=== PATIENT | female | born 1950 | race Two or more races ===

== ENCOUNTER 2024-03-17 22:36 | Inpatient (IN) | payer MEDICAID ==
[~2024-03-17] VITALS: Ht 160 cm; Wt 79.3 kg
[~2024-03-17 22:36] MED LIST: ASPI81CH43 GT; HYDR12.59 PO
[2024-03-17 23:31] LABS: Basophils # (auto) 0 10 ^3/uL (0-0.2); Basophils % (auto) 0.3 % (0.0-2.0); Eosinophils # (auto) 0.1 10 ^3/uL (0-0.8); Eosinophils % (auto) 0.8 % (0.0-7.0); Hematocrit 39.3 % (36.0-46.0); Hemoglobin 12.9 g/dL (12.2-16.2); Lymphocytes # (auto) 2.2 10 ^3/uL (0.4-5.4); Lymphocytes % (auto) 18.5 % (10.0-50.0); Mean Corpuscular Hemoglobin 31.3 pg (28.0-32.0); Mean Corpuscular Hgb Conc. 32.9 g/dL (32.0-36.0); Mean Corpuscular Volume 95.1 fL (80.0-100.0); Monocytes # (auto) 0.7 10 ^3/uL (0-1.3); Monocytes % (auto) 5.7 % (0.0-12.0); Neutrophils # (auto) 8.8 10 ^3/uL (1.6-8.6); Neutrophils % (auto) 74.7 % (37.0-80.0); Nucleated Red Blood Cells % 0.1 %; Platelet Count (auto) 192 10^3/uL (140-450); Red Blood Cells 4.13 10^6/uL (4.0-5.20); Red Cell Distribution Width 14.3 % (11.8-14.3); White Blood Cell 11.8 10^3/uL (4.4-10.8)
[2024-03-17 23:50] LABS: Alanine Aminotransferase 18 U/L (7-40); Albumin 4.2 g/dL (3.2-4.8); Alkaline Phosphatase 79 U/L (46-116); Anion Gap 5 (5-15); Aspartate Aminotransferase 18 U/L (13-40); BUN/Creatinine Ratio 14.7 (10.0-20.0); Blood Urea Nitrogen 11 mg/dL (9-23); Calcium 9.5 mg/dL (8.7-10.4); Carbon Dioxide 26 mmol/L (20-30); Chloride 104 mmol/L (98-107); Glucose 116 mg/dL (74-106); Lipase 47 U/L (12-53); Potassium 3.9 mmol/L (3.5-5.1); Sodium 135 mmol/L (136-145)
[2024-03-17 23:51] LABS: Total Protein 6.9 g/dL (5.7-8.2)
[2024-03-18 00:09] LABS: Bilirubin, Total 0.6 mg/dL (0.2-1.0)
[2024-03-18 00:23] LABS: COVID19 ANTIGEN SOFIA FIA NEGATIVE (NEGATIVE)
[2024-03-18] MEDS: ONDANSETRON HCL 4 MG/2 ML VIAL IV ONE (03:37)
[2024-03-18] MEDS: metroNIDAZOLE 500MG/100ML 100 ML IV ONE (03:38)
[2024-03-18] MEDS: SODIUM CHLORIDE 0.9% 500 ML IVB ONE (03:39)
[2024-03-18 08:17] VITALS: PULSE 62; RESP 19; O2SAT 98
[2024-03-18 09:05] LABS: Urine Bacteria FEW /hpf (None Seen); Urine Blood TRACE /uL (Negative); Urine Clarity Clear (Clear); Urine Color Light-Yellow (Yellow); Urine Protein, UAD Negative (Negative); Urine Specific Gravity 1.006 (1.001-1.035); Urine Urobilinogen Normal (Negative); Urine WBC 1 /hpf (0 - 5)
[2024-03-18] MEDS: PANTOPRAZOLE 40mg/50ML NS AE 50 ML IV SCH (09:38)
[2024-03-18] MEDS: ONDANSETRON HCL 4 MG/2 ML VIAL IV PRN (10:15)
[2024-03-18] MEDS: MORPHINE SULFATE INJ 2 MG/ml SYRG IV PRN (10:16)
[2024-03-18] MEDS: SODIUM CHLORIDE 0.9% 1,000 ML IV SCH (10:17)
[2024-03-18] MEDS ORDERED: DOCUSATE SOD 100 MG CAP PO PRN (11:30)
[2024-03-18] MEDS ORDERED: ONDANSETRON HCL 4 MG/2 ML VIAL IV PRN (11:30)
[2024-03-18] MEDS ORDERED: HYDROcodone-ACET 5/325MG TAB PO PRN (11:30)
[2024-03-18] MEDS ORDERED: ACETAMINOPHEN 325 MG TAB PO PRN (11:30)
[2024-03-18] MEDS: metroNIDAZOLE 500MG/100ML 100 ML IV SCH (12:08)
[2024-03-18] MEDS: cefTRIAXone 1GM/50ML D5W 50 ML IV SCH (12:09)
[2024-03-18] MEDS: LACTATED RINGER'S 1,000 ML IV ONE (12:10)
[2024-03-18] MEDS: SODIUM CHLOR 0.9% PF (SALINE LOCK) 10ML VIAL/SYR IV SCH (13:31)
[2024-03-18 13:48] LABS: Basophils # (auto) 0 10 ^3/uL (0-0.2); Basophils % (auto) 0.3 % (0.0-2.0); Eosinophils # (auto) 0.1 10 ^3/uL (0-0.8); Eosinophils % (auto) 0.7 % (0.0-7.0); Hemoglobin 12.1 g/dL (12.2-16.2); Lymphocytes # (auto) 2.1 10 ^3/uL (0.4-5.4); Lymphocytes % (auto) 21.5 % (10.0-50.0); Mean Corpuscular Hemoglobin 31.9 pg (28.0-32.0); Mean Corpuscular Hgb Conc. 33.6 g/dL (32.0-36.0); Mean Corpuscular Volume 94.9 fL (80.0-100.0); Monocytes # (auto) 0.7 10 ^3/uL (0-1.3); Monocytes % (auto) 7.2 % (0.0-12.0); Neutrophils # (auto) 6.9 10 ^3/uL (1.6-8.6); Neutrophils % (auto) 70.3 % (37.0-80.0); Platelet Count (auto) 170 10^3/uL (140-450); Red Blood Cells 3.79 10^6/uL (4.0-5.20); Red Cell Distribution Width 14.4 % (11.8-14.3); White Blood Cell 9.8 10^3/uL (4.4-10.8)
[2024-03-18 14:02] LABS: Alanine Aminotransferase 14 U/L (7-40); Albumin 3.6 g/dL (3.2-4.8); Alkaline Phosphatase 76 U/L (46-116); Anion Gap 3 (5-15); Aspartate Aminotransferase 15 U/L (13-40); BUN/Creatinine Ratio 14.5 (10.0-20.0); Blood Urea Nitrogen 10 mg/dL (9-23); Calcium 8.8 mg/dL (8.7-10.4); Carbon Dioxide 28 mmol/L (20-30); Chloride 106 mmol/L (98-107); Glucose 103 mg/dL (74-106); Potassium 4.1 mmol/L (3.5-5.1); Sodium 137 mmol/L (136-145)
[2024-03-18 14:03] LABS: Bilirubin, Total 0.6 mg/dL (0.2-1.0); Total Protein 5.5 g/dL (5.7-8.2)
[2024-03-18 14:43] VITALS: BP 180/55; PULSE 75; RESP 18; TEMP 98.3; O2SAT 96
[2024-03-18 16:16] VITALS: BP 150/70; PULSE 68; RESP 16; TEMP 98.3; O2SAT 96
[2024-03-18 17:00] VITALS: BP 150/70; PULSE 68; RESP 16; TEMP 98.3; O2SAT 96
[2024-03-18] MEDS ORDERED: ENAL1TAB42 PO (19:16)
[2024-03-18 20:00] VITALS: PULSE 68; RESP 18
[2024-03-18 21:00] VITALS: BP 137/52; PULSE 68; RESP 20; TEMP 99.3; O2SAT 95
[2024-03-18 22:37] LABS: Hematocrit 34.3 % (36.0-46.0); Hemoglobin 11.6 g/dL (12.2-16.2)
[2024-03-18 22:56] LABS: INR 1.05 (0.9-1.15); Prothrombin Time 11.1 sec (9.3-11.8)
[2024-03-19] VITALS (8 sets, daily range): BP systolic 112–150; BP diastolic 36–51; PULSE 55–68; RESP 14–21; TEMP 97.6–98.8; O2SAT 93–100
[2024-03-19 06:11] LABS: Basophils # (auto) 0 10 ^3/uL (0-0.2); Basophils % (auto) 0.4 % (0.0-2.0); Eosinophils # (auto) 0.2 10 ^3/uL (0-0.8); Eosinophils % (auto) 2.2 % (0.0-7.0); Hematocrit 36.6 % (36.0-46.0); Hemoglobin 12.5 g/dL (12.2-16.2); Lymphocytes # (auto) 2.5 10 ^3/uL (0.4-5.4); Mean Corpuscular Hemoglobin 32.6 pg (28.0-32.0); Mean Corpuscular Hgb Conc. 34.3 g/dL (32.0-36.0); Mean Corpuscular Volume 95.2 fL (80.0-100.0); Monocytes # (auto) 0.7 10 ^3/uL (0-1.3); Monocytes % (auto) 6.6 % (0.0-12.0); Neutrophils # (auto) 6.5 10 ^3/uL (1.6-8.6); Neutrophils % (auto) 65.8 % (37.0-80.0); Nucleated Red Blood Cells % 0.2 %; Platelet Count (auto) 178 10^3/uL (140-450); Red Blood Cells 3.84 10^6/uL (4.0-5.20); Red Cell Distribution Width 14.3 % (11.8-14.3); White Blood Cell 9.9 10^3/uL (4.4-10.8)
[2024-03-19 06:29] LABS: Alanine Aminotransferase 14 U/L (7-40); Alkaline Phosphatase 74 U/L (46-116); Anion Gap 3 (5-15); BUN/Creatinine Ratio 8.6 (10.0-20.0); Blood Urea Nitrogen 7 mg/dL (9-23); Carbon Dioxide 30 mmol/L (20-30); Chloride 105 mmol/L (98-107); Glucose 99 mg/dL (74-106); Potassium 4.2 mmol/L (3.5-5.1); Sodium 138 mmol/L (136-145)
[2024-03-19 06:30] LABS: Albumin 3.8 g/dL (3.2-4.8); Aspartate Aminotransferase 15 U/L (13-40); Total Protein 6.3 g/dL (5.7-8.2)
[2024-03-19 11:07] LABS: Hematocrit 33.7 % (36.0-46.0); Hemoglobin 11.5 g/dL (12.2-16.2)
[2024-03-19] MEDS ORDERED: diphenhdrAMINE HCL 50 MG/1 ML VL ONE (15:25)
[2024-03-19] MEDS ORDERED: LIDOCAINE VISCOUS 2% 15ML UD ONE (15:25)
[2024-03-19] MEDS: fentaNYL CITRATE 100 MCG/2 ML VL ONE (17:46)
[2024-03-19] MEDS: MIDAZOLAM HCL 5 MG/ML-1ML VIAL ONE (17:46)
[2024-03-19 22:21] LABS: Hematocrit 32.8 % (36.0-46.0); Hemoglobin 10.8 g/dL (12.2-16.2)
[2024-03-20 01:00] VITALS: BP 138/51; PULSE 68; RESP 20; TEMP 98.3; O2SAT 95
[2024-03-20 05:00] VITALS: BP 146/54; PULSE 54; RESP 18; TEMP 97.9; O2SAT 18
[2024-03-20 06:30] LABS: Basophils # (auto) 0 10 ^3/uL (0-0.2); Basophils % (auto) 0.4 % (0.0-2.0); Eosinophils # (auto) 0.2 10 ^3/uL (0-0.8); Eosinophils % (auto) 2.7 % (0.0-7.0); Hemoglobin 11.3 g/dL (12.2-16.2); Lymphocytes # (auto) 1.9 10 ^3/uL (0.4-5.4); Lymphocytes % (auto) 29.2 % (10.0-50.0); Mean Corpuscular Hemoglobin 32.8 pg (28.0-32.0); Mean Corpuscular Hgb Conc. 34.2 g/dL (32.0-36.0); Mean Corpuscular Volume 95.9 fL (80.0-100.0); Monocytes # (auto) 0.5 10 ^3/uL (0-1.3); Monocytes % (auto) 7.1 % (0.0-12.0); Neutrophils % (auto) 60.6 % (37.0-80.0); Platelet Count (auto) 157 10^3/uL (140-450); Red Blood Cells 3.44 10^6/uL (4.0-5.20); Red Cell Distribution Width 14.5 % (11.8-14.3); White Blood Cell 6.6 10^3/uL (4.4-10.8)
[2024-03-20 06:48] LABS: Alanine Aminotransferase 13 U/L (7-40); Albumin 3.5 g/dL (3.2-4.8); Alkaline Phosphatase 70 U/L (46-116); Anion Gap 4 (5-15); Aspartate Aminotransferase 13 U/L (13-40); BUN/Creatinine Ratio 9.3 (10.0-20.0); Blood Urea Nitrogen 7 mg/dL (9-23); Calcium 8.7 mg/dL (8.7-10.4); Carbon Dioxide 28 mmol/L (20-30); Chloride 106 mmol/L (98-107); Glucose 78 mg/dL (74-106); Potassium 3.6 mmol/L (3.5-5.1); Sodium 138 mmol/L (136-145)
[2024-03-20 06:49] LABS: Bilirubin, Total 0.6 mg/dL (0.2-1.0); Total Protein 5.7 g/dL (5.7-8.2)
[2024-03-20 08:00] VITALS: PULSE 60; RESP 16; O2SAT 97
[2024-03-20 08:58] VITALS: BP 129/57; PULSE 60; RESP 16; TEMP 98.2; O2SAT 97
[2024-03-20] MEDS: PANTOPRAZOLE 40 MG/10 ML VIAL INJ IV SCH (10:29)
[2024-03-20 10:32] LABS: Hematocrit 33.8 % (36.0-46.0); Hemoglobin 11.3 g/dL (12.2-16.2)
[2024-03-20] MEDS ORDERED: SUCR1TAB PO (12:16)
[2024-03-20] MEDS ORDERED: PANT40T PO (12:16)
[2024-03-20 12:28] VITALS: BP 146/58; PULSE 65; RESP 16; TEMP 98.5; O2SAT 95
[2024-03-20 13:30] VITALS: BP 146/58; PULSE 65; RESP 16; TEMP 98.5; O2SAT 95
== END 2024-03-20 14:30 | disposition home or self-care (01) | DRG 241 ==
LOC: ER 22:36 → OVERFLOW 03-18 11:32 → CENTRAL 03-18 14:58
PROVIDERS: ATTEND Internal Medicine
PROC: 0DB78ZX Excision of Stomach, Pylorus, Via Natural or Artificial Opening Endoscopic, Diagnostic (ICD-10-PCS; principal; 2024-03-19 17:37)
DX: K25.4 Chronic or unspecified gastric ulcer with hemorrhage (principal); R71.0 Precipitous drop in hematocrit; K57.30 Diverticulosis of large intestine without perforation or abscess without bleeding; A09 Infectious gastroenteritis and colitis, unspecified; K26.4 Chronic or unspecified duodenal ulcer with hemorrhage; I10 Essential (primary) hypertension; R91.1 Solitary pulmonary nodule; K57.32 Diverticulitis of large intestine without perforation or abscess without bleeding; Z20.822 Contact with and (suspected) exposure to COVID-19; I25.10 Atherosclerotic heart disease of native coronary artery without angina pectoris; Z79.82 Long term (current) use of aspirin; Z79.899 Other long term (current) drug therapy; Z90.49 Acquired absence of other specified parts of digestive tract
CPT/HCPCS: 20610; 36415; 43239; 71045; 80053; 81001; 83605; 83690; 85014; 85018; 85025; 85610; 85730; 86850; 86900; 86901; 87426; 93005; G0378; J2250; J2405; J2470; J3490

== ENCOUNTER 2024-06-13 18:17 | Emergency (ER) | payer MEDICAID ==
[~2024-06-13] VITALS: Ht 157.5 cm; Wt 76.3 kg
[~2024-06-13 18:17] MED LIST changes: +ENAL1TAB42 PO; +PANT40T PO; +SUCR1TAB PO
--- NOTE | 2024-06-13 19:08 | ED.PDOC ---
HPI (NEURO) HPI Comments HPI: Poor Historian. 74-year-old female complains of one-week history of nonspecific dizziness. No alleviating or precipitating factors. Patient also mentioned that she has some associated nausea. Denies any pain. Patient states having some diarrhea yesterday six episodes and today twice yellow in color. Past Medcial History: Hypertension on enalapril Past Surgical History: Cholecystectomy REVIEW OF SYSTEMS: CONSTITUTIONAL: Denies acute: fever, diaphoresis, chills, generalized weakness. HEAD: Denies acute: headache, photophobia Eyes: Denies acute: Double vision, vision loss, eye pain, eye discharge. EARS: Denies acute: tinnitus, hearing loss, ear discharge, ear pain, THROAT: Denies acute: sore throat, swelling, difficulty swallowing , pain with swallowing, change in voice. NECK: Denies acute: neck pain, neck swelling, stiff neck. HEART: Denies acute : chest pain, palpitations, LUNGS: Denies acute: SOB, wheezing, cough, hemoptysis ABDOMEN: Denies acute: abdominal pain, Vomiting, melena , hematemesis, hematochezia SKIN: Denies acute: rash, redness, lesions, itchiness. EXTREMITIES: Denies acute: calf pain, numbness, tingling, weakness, denies pain in extremity. Denies acute: Low back pain. Neuro: Denies acute: focal neurological deficit, motor or sensory focal neurological deficit, tremors, seizure like activity, confusion, change in mental status, loss of bowel or bladder function, cauda equina like symptoms. : Denies acute: dysuria, hematuria, flank pain, increase in urinary frequency. PSYCH: Denies acute: hallucination, suicidal ideation, homicidal ideation. FEMALE: Denies acute: abnormal vaginal bleeding, foul odor, unusual discharge. PHYSICAL EXAM: General: no acute distress, awake and alert. Head: normocephalic, atraumatic. Neck: supple, trachea is midline, no swelling. Throat: Normal phonation. Eyes:, no erythema, no purulent discharge, no proptosis, no icterus. Heart: regular rate, regular rhythm, no significant murmur appreciated. Lungs: no apparent respiratory distress, Able to speak in full sentences. No wheezing, no rhonchi, no crackles. No stridors Clear to auscultation bilaterally. Abdomen: non tender to palpation, non distended, soft, no guarding, no rebound, + bowel sounds. Neuro: Awake, Alert, oriented to name, self, situation, follows commands GCS=15. Speech is normal. Skin: no petechia, no purpura, no cyanosis, non-pale, not jaundice. Lower extremities: --no - Pitting edema no deformity, no focal swelling, no calf TTP. Makes eye contact. moves all four extremities. Face: no apparent facial droop. Ambulating in the ED independently. PERRLA, EOM-I CN 2-12 are grossly intact, No nystagmus. No nuchal rigidity, Kernig's sign, Brudzinski's sign, no meningeal signs. 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 Was a procedure done?: No Differential Diagnosis (SZ) Seizure: N/A General Weakness: Anemia, CVA, Dehydration, Dysrhythmia, Electrolyte imbalance, Encephalopathy, Guillain-[place], Hypoglycemia, Hypotension, Hypovolemia, Labyrinthitis, Meniere's disease, Myasthenia gravis, Myocardial infarction, P ulmonary embolus, Renal failure, Repiratory failure, TIA, VBI, Vertigo: central, Vertigo: peripheral, Vestibular neuronitis X-Ray, Labs, Meds, VS Vital Signs Date Time Temp Pulse Resp B/P (MAP) Pulse Ox O2 Delivery O2 Flow Rate FiO2 06/13/24 22:21 76 18 153/65 (94) 98 06/13/24 22:20 67 18 152/55 (87) 98 06/13/24 19:48 89 18 92 Room Air* 0 21 06/13/24 19:48 98.7 89 18 116/55 (75) 92 98.7 06/13/24 18:52 98.3 89 18 162/63 (96) 95 06/13/24 18:51 78 Lab Test 06/13/24 21:12 11/18/24 19:53 06/13/24 19:16 06/13/24 18:49 Range/Units Troponin I High Sensitivity 4 4 </=34 ng/L White Blood Count 9.3 4.4-10.8 10^3/uL Red Blood Count 4.30 4.0-5.20 10^6/uL Hemoglobin 13.7 12.2-16.2 g/dL Hematocrit 39.7 36.0-46.0 % Mean Corpuscular Volume 92.5 80.0-100.0 fL Mean Corpuscular Hemoglobin 31.8 28.0-32.0 pg Mean Corpuscular Hemoglobin Concent 34.4 32.0-36.0 g/dL Red Cell Distribution Width 14.0 11.8-14.3 % Platelet Count 226 140-450 10^3/uL Mean Platelet Volume 8.4 6.9-10.8 fL Neutrophils (%) (Auto) 61.5 37.0-80.0 % Lymphocytes (%) (Auto) 28.4 10.0-50.0 % Monocytes (%) (Auto) 7.8 0.0-12.0 % Eosinophils (%) (Auto) 1.6 0.0-7.0 % Basophils (%) (Auto) 0.7 0.0-2.0 % Neutrophils # (Auto) 5.7 1.6-8.6 10 ^3/uL Lymphocytes # (Auto) 2.7 0.4-5.4 10 ^3/uL Monocytes # (Auto) 0.7 0-1.3 10 ^3/uL Eosinophils # (Auto) 0.2 0-0.8 10 ^3/uL Basophils # (Auto) 0.1 0-0.2 10 ^3/uL Nucleated Red Blood Cells 0.1 % Sodium Level 137 136-145 mmol/L Potassium Level 4.3 3.5-5.1 mmol/L Chloride Level 102 98-107 mmol/L Carbon Dioxide Level 28 20-31 mmol/L Anion Gap 7 5-15 Blood Urea Nitrogen 18 9-23 mg/dL Creatinine 0.84 0.550-1.02 mg/dL Glomerular Filtration Rate Calc 72 >90 mL/min BUN/Creatinine Ratio 21.4 H 10.0-20.0 Serum Glucose 117 H 74-106 mg/dL Lactic Acid Level 1.1 0.4-2.0 mmol/L Calcium Level 10.0 8.7-10.4 mg/dL Magnesium Level 2.0 1.6-2.6 mg/dL Total Bilirubin 0.3 0.2-1.0 mg/dL Aspartate Amino Transferase (AST) 20 13-40 U/L Alanine Aminotransferase (ALT) 18 7-40 U/L Alkaline Phosphatase 89 46-116 U/L Total Protein 7.4 5.7-8.2 g/dL Albumin 4.8 3.2-4.8 g/dL Urine Color Light-yellow Yellow Urine Clarity Clear Clear Urine pH 6.0 5.0-9.0 Urine Specific [place] 1.014 1.001-1.035 Urine Protein Negative Negative Urine Ketones Negative Negative Urine Blood Negative Negative /uL Urine Nitrite Negative Negative Urine Bilirubin Negative Negative Urine Urobilinogen Normal Negative mg/dL Urine Leukocyte Esterase 2+ Negative /uL Urine RBC 2 0 - 4 /hpf Urine WBC 9 0 - 5 /hpf Urine Squamous Epithelial Cells Few <5 /hpf Urine Bacteria Mod H None Seen /hpf Urine Glucose Normal Normal mg/dL POC Glucose 145 H 70-106 mg/dl Current Medications Medications (Trade) Dose Ordered Sig/Oli Route Start Time Stop Time Status Last Admin Sodium Chloride 1,000 ml @ 1,000 mls/hr Q1H ONCE IV 06/13/24 19:15 06/13/24 20:14 DC 06/13/24 20:16 Ceftriaxone Sodium 50 ml @ 100 mls/hr ONCE ONCE IV 06/13/24 20:30 06/13/24 20:59 DC 06/13/24 21:25 [place] [id number] Ph: [phone] DIAGNOSTIC IMAGING Diagnostic Imaging Report : [id number] Signed PATIENT: KIN HAMEED ACCT: [id number] UNIT: [id number] : 1950 LOC: ER ROOM / BED: / AGE / SEX: 74 / F ADM STATUS: REG ER SERVICE 01 ORDERING PHYSICIAN: ANN VALDERRAMA DO PROCEDURE(s): HWOCT - HEAD WITHOUT CONTRAST REASON: dizzy/nausea ORDER NUMBER(s): [id number], ACCESSION NUMBER(s): [id number] EXAM: CT HEAD WITHOUT CONTRAST HISTORY: dizzy/nausea COMPARISON: None TECHNIQUE: Axial images were obtained and reformatted in coronal and sagittal planes. All CT scans at this medical facility are performed using dose modulation techniques as appropriate to a performed exam including the following: Automated exposure control was utilized; adjustment of the MA and/or KV according to moy ent size; and use of iterative reconstruction technique. CT Dose: CTDI volume is 48.65 mGy. Dose-length product is 780.19 mGy*cm FINDINGS: Supratentorial Region: No evidence for large acute territorial ischemia. No intracranial hemorrhage is noted. Posterior Fossa: No acute abnormality. Brainstem: Unremarkable. Sellar/Suprasellar Region: Unremarkable. Ventricles, Cisterns, Sulci: Age-appropriate. Orbits: Unremarkable. Paranasal Sinuses: Unremarkable. Mastoid Air Cells: Unremarkable. Vasculature: Intracranial arterial calcified plaque formation noted. Bones/Soft Tissues: No acute abnormality. Other: None. IMPRESSION: 1. No acute intracranial process. ATED BY: BERTHA SALAS MD DICTATED DATE/TIME: 06/13/241957 SIGNED BY: BERTHA SALAS MD SIGNED DATE/TIME: 06/13/241957 CC: [place] [address] Ph: [phone] DIAGNOSTIC IMAGING Diagnostic Imaging Report : [id number] Signed PATIENT: KIN HAMEED ACCT: [id number] UNIT: [id number] : 1950 LOC: ER ROOM / BED: / AGE / SEX: 74 / F ADM STATUS: REG ER SERVICE 01 ORDERING PHYSICIAN: ANN VALDERRAMA DO PROCEDURE(s): CXRP - CHEST PORTABLE REASON: dizzy/nausea ORDER NUMBER(s): [id number], ACCESSION NUMBER(s): [id number] CHEST RADIOGRAPH Indication: dizzy/nausea Technique: Single frontal view of the chest was obtained Comparison: XY CHEST XRAY 1 VIEW on DOS: 03/19/24 FINDINGS: Lines and Tubes: None Lungs: No focal consolidation. Pleura: No effusion. No pneumothorax. Cardiomediastinal contours: Unremarkable Bones: No acute osseous abnormality. IMPRESSION: No acute cardiopulmonary disease. ATED BY: MAURICE SPICER DO DICTATED DATE/TIME: 06/13/241952 SIGNED BY: MAURICE SPICER DO SIGNED DATE/TIME: 06/13/241952 CC: Time of 1ST Reevaluation: 22:18 (Orthostatics were obtained which were unremarkable. Patient in no acute distress. Patient has no focal neurological deficits.) Reevaluation 1ST: Improved Patient Education/Counseling: Diagnosis, Treatment Family Education/Counseling: No Family Present Comments Patient presented with the above HPI.---dizziness---workup was initiated. patient was found with the above mentioned diagnosis. Patient was given: Fluids and antibiotics Patient ED course and VS have been stabilized. Patient has been reassessed in the ED and remained in a stable condition. Pertinent incidental findings were discussed with the patient and/or family. Patient/family voices understanding and is agreeable with plan. Patient has been observed in the ED adequate length of time to insure improvement/stability. patient was discharged home in a stable condition. All the reports of any imaging studies that were ordered by myself were reviewed by myself. Departure 1 Departure Time of Disposition: 20:28 Impression: Primary Impression: UTI (urinary tract infection) Additional Impression: Dizziness Disposition: HOME / SELF CARE / HOMELESS Condition: Stable Additional Instructions: Additional discharge instructions: You MUST follow-up with your primary care/family doctor in 1 to 2 days. If you are unable to see your primary care/family doctor, please return to our emergency room for re-assessment and re-evaluation in 1 to 2 days. Return to the emergency room here in our facility or to the nearest ER [facility] if your symptoms change or worsen. CONSULTATIONS: you MUST Follow-up for consultation as soon as possible with: neurology and cardiology in 1-2 days. Please call for appointment You MUST call the consultants office yourself to make an appointment. You may need to arrange that through your insurance and/or your primary/family doctor. If you are unable to see the national sales consultant in 1 to 2 days, you must return to our emergency room (or any other ER of your choice) for re-assessment and re- evaluation. Adequate fluid hydration. Below is a copy of your radiological report for follow up: [place] [id number] Ph: [phone] DIAGNOSTIC IMAGING Diagnostic Imaging Report : [id number] Signed PATIENT: KIN HAMEED ACCT: [id number] UNIT: [id number] : 1950 LOC: ER ROOM / BED: / AGE / SEX: 74 / F ADM STATUS: REG ER SERVICE 01 ORDERING PHYSICIAN: ANN VALDERRAMA DO PROCEDURE(s): HWOCT - HEAD WITHOUT CONTRAST REASON: dizzy/nausea ORDER NUMBER(s): [id number], ACCESSION NUMBER(s): [id number] EXAM: CT HEAD WITHOUT CONTRAST HISTORY: dizzy/nausea COMPARISON: None TECHNIQUE: Axial images were obtained and reformatted in coronal and sagittal planes. All CT scans at this medical facility are performed using dose modulation techniques as appropriate to a performed exam including the following: Automated exposure control was utilized; adjustment of the MA and/or KV according to pat ient size; and use of iterative reconstruction technique. CT Dose: CTDI volume is 48.65 mGy. Dose-length product is 780.19 mGy*cm FINDINGS: Supratentorial Region: No evidence for large acute territorial ischemia. No intracranial hemorrhage is noted. Posterior Fossa: No acute abnormality. Brainstem: Unremarkable. Sellar/Suprasellar Region: Unremarkable. Ventricles, Cisterns, Sulci: Age-appropriate. Orbits: Unremarkable. Paranasal Sinuses: Unremarkable. Mastoid Air Cells: Unremarkable. Vasculature: Intracranial arterial calcified plaque formation noted. Bones/Soft Tissues: No acute abnormality. Other: None. IMPRESSION: 1. No acute intracranial process. ATED BY: BERTHA SALAS MD DICTATED DATE/TIME: 06/13/241957 SIGNED BY: BERTHA SALAS MD SIGNED DATE/TIME: 06/13/241957 CC: [address] [id number] Ph: [phone] DIAGNOSTIC IMAGING Diagnostic Imaging Report : [id number] Signed PATIENT: KIN HAMEED ACCT: [id number] UNIT: [id number] : 1950 LOC: ER ROOM / BED: / AGE / SEX: 74 / F ADM STATUS: REG ER SERVICE 01 ORDERING PHYSICIAN: ANN VALDERRAMA DO PROCEDURE(s): CXRP - CHEST PORTABLE REASON: dizzy/nausea ORDER NUMBER(s): [id number], ACCESSION NUMBER(s): [id number] CHEST RADIOGRAPH Indication: dizzy/nausea Technique: Single frontal view of the chest was obtained Comparison: XY CHEST XRAY 1 VIEW on DOS: 03/19/24 FINDINGS: Lines and Tubes: None Lungs: No focal consolidation. Pleura: No effusion. No pneumothorax. Cardiomediastinal contours: Unremarkable Bones: No acute osseous abnormality. IMPRESSION: No acute cardiopulmonary disease. ATED BY: MAURICE SPICER DO DICTATED DATE/TIME: 06/13/241952 SIGNED BY: MAURICE SPICER DO SIGNED DATE/TIME: 06/13/241952 CC: e-Prescriptions Cephalexin Monohydrate (Cephalexin) 500 Mg Cap 500 MG PO Q8HR for 7 Days, #21 CAP Prov: ANN VALDERRAMA DO 06/13/24 Discharged With: Self ANN VALDERRAMA DO Jun 13, 2024 19:08
[2024-06-13 19:30] LABS: Urine Bacteria MOD /hpf (None Seen); Urine Blood Negative /uL (Negative); Urine Clarity Clear (Clear); Urine Color Light-Yellow (Yellow); Urine Protein, UAD Negative (Negative); Urine Specific Gravity 1.014 (1.001-1.035); Urine Urobilinogen Normal (Negative); Urine WBC 9 /hpf (0 - 5)
[2024-06-13 19:48] VITALS: PULSE 89; RESP 18; TEMP 98.7; O2SAT 92
--- NOTE | 2024-06-13 19:55 | DVH ---
CHEST RADIOGRAPH Indication: dizzy/nausea Technique: Single frontal view of the chest was obtained Comparison: XY CHEST XRAY 1 VIEW on DOS: 03/19/24 FINDINGS: Lines and Tubes: None Lungs: No focal consolidation. Pleura: No effusion. No pneumothorax. Cardiomediastinal contours: Unremarkable Bones: No acute osseous abnormality. IMPRESSION: No acute cardiopulmonary disease.
--- NOTE | 2024-06-13 20:01 | DVH ---
EXAM: CT HEAD WITHOUT CONTRAST HISTORY: dizzy/nausea COMPARISON: None TECHNIQUE: Axial images were obtained and reformatted in coronal and sagittal planes. All CT scans at this medical facility are performed using dose modulation techniques as appropriate t o a performed exam including the following: Automated exposure control was utilized; adjustment of th e MA and/or KV according to patient size; and use of iterative reconstruction technique. CT Dose: CTDI volume is 48.65 mGy. Dose-length product is 780.19 mGy*cm FINDINGS: Supratentorial Region: No evidence for large acute territorial ischemia. No intracranial hemorrhage is noted. Posterior Fossa: No acute abnormality. Brainstem: Unremarkable. Sellar/Suprasellar Region: Unremarkable. Ventricles, Cisterns, Sulci: Age-appropriate. Orbits: Unremarkable. Paranasal Sinuses: Unremarkable. Mastoid Air Cells: Unremarkable. Vasculature: Intracranial arterial calcified plaque formation noted. Bones/Soft Tissues: No acute abnormality. Other: None. IMPRESSION: 1. No acute intracranial process.
[2024-06-13 20:09] LABS: Basophils # (auto) 0.1 10 ^3/uL (0-0.2); Basophils % (auto) 0.7 % (0.0-2.0); Eosinophils # (auto) 0.2 10 ^3/uL (0-0.8); Eosinophils % (auto) 1.6 % (0.0-7.0); Hematocrit 39.7 % (36.0-46.0); Hemoglobin 13.7 g/dL (12.2-16.2); Lymphocytes # (auto) 2.7 10 ^3/uL (0.4-5.4); Lymphocytes % (auto) 28.4 % (10.0-50.0); Mean Corpuscular Hemoglobin 31.8 pg (28.0-32.0); Mean Corpuscular Hgb Conc. 34.4 g/dL (32.0-36.0); Mean Corpuscular Volume 92.5 fL (80.0-100.0); Monocytes # (auto) 0.7 10 ^3/uL (0-1.3); Monocytes % (auto) 7.8 % (0.0-12.0); Neutrophils # (auto) 5.7 10 ^3/uL (1.6-8.6); Neutrophils % (auto) 61.5 % (37.0-80.0); Nucleated Red Blood Cells % 0.1 %; Platelet Count (auto) 226 10^3/uL (140-450); White Blood Cell 9.3 10^3/uL (4.4-10.8)
[2024-06-13] MEDS: SODIUM CHLORIDE 0.9% 1,000 ML IV ONE (20:16)
[2024-06-13 20:26] LABS: Alanine Aminotransferase 18 U/L (7-40); Albumin 4.8 g/dL (3.2-4.8); Alkaline Phosphatase 89 U/L (46-116); Anion Gap 7 (5-15); Aspartate Aminotransferase 20 U/L (13-40); BUN/Creatinine Ratio 21.4 (10.0-20.0); Blood Urea Nitrogen 18 mg/dL (9-23); Carbon Dioxide 28 mmol/L (20-31); Chloride 102 mmol/L (98-107); Glucose 117 mg/dL (74-106); Potassium 4.3 mmol/L (3.5-5.1); Sodium 137 mmol/L (136-145)
[2024-06-13 20:27] LABS: Bilirubin, Total 0.3 mg/dL (0.2-1.0); Total Protein 7.4 g/dL (5.7-8.2)
[2024-06-13] MEDS: cefTRIAXone 1GM/50ML D5W 50 ML IV ONE (21:25)
[2024-06-13 22:21] VITALS: BP 153/65; PULSE 76; RESP 18; O2SAT 98
[2024-06-13] MEDS ORDERED: CEPH500C PO (22:21)
--- NOTE | 2024-06-14 10:05 | ECG ---
[facility] Test Date: 2024-06-13 Test Time: 18:51:26 Pat Name: KIN HAMEED Department: ER Room: Gender: F Conductor Pullman: TONY : 1950 Requested By: EMERGENCY EMERGENCY Order Number: [id number] Reading MD: Measurements Intervals [place] Rate: 78 P: 78 NM: 141 QRS: 77 QRSD: 78 T: 63 QT: 365 QTc: 416 Interpretive Statements Sinus rhythm Please click the below link to view image of tracing.
== END 2024-06-13 22:57 | disposition home or self-care (01) ==
LOC: ER 18:17
DX: N39.0 Urinary tract infection, site not specified (principal); R42 Dizziness and giddiness; I10 Essential (primary) hypertension; Z90.49 Acquired absence of other specified parts of digestive tract; Z98.890 Other specified postprocedural states
CPT/HCPCS: 36415; 70450; 71045; 80053; 81001; 82962; 83605; 83735; 84484; 85025; 93005; 96361; 96365; 99285; J0696; J7030

== ENCOUNTER 2024-10-10 18:51 | Emergency (ER) | payer MEDICAID ==
[~2024-10-10] VITALS: Ht 152.4 cm; Wt 82.0 kg
[~2024-10-10 18:51] MED LIST changes: +CEPH500C PO
--- NOTE | 2024-10-10 19:07 | ECG ---
[facility] Test Date: 2024-10-10 Test Time: 19:02:13 Pat Name: KIN HMAEED Department: ER Room: Gender: F Community [facility] Director: TONY : 1950 Requested By: EMERGENCY EMERGENCY Order Number: [id number] Reading MD: Measurements Intervals [place] Rate: 72 P: 62 WA: 154 QRS: 60 QRSD: 74 T: 62 QT: 382 QTc: 419 Interpretive Statements Sinus rhythm Abnormal R-wave progression, early transition Borderline T wave abnormalities Please click the below link to view image of tracing.
--- NOTE | 2024-10-10 19:17 | ED.PDOC ---
Back pain HPI HPI Comments Poor historian * * * 74 y/o obese female presents with c/o nonradiating, right-lower back pain,x * Onset of symptoms yesterday morning. * She reports on pain being "stabbing" in quality and rates it a 10/10 severity. * Denies any recent strenuous activities, falls, or injuries. * Pain improves with laying and worsens with movement. Denies any neurological deficits. Denies any cauda equina like symptoms. Vitals Temperature: 97.8F Respiratory rate: 17 SpO2: 96% RA Heart rate: 78 Blood pressure: 115/61 Past medical history: HTN on enalapril Past surgical history: Cholecystectomy REVIEW OF SYSTEMS: CONSTITUTIONAL: Denies acute: fever, diaphoresis, chills, generalized weakness. HEAD: Denies acute: headache, photophobia Eyes: Denies acute: Double vision, vision loss, eye pain, eye discharge. EARS: Denies acute: tinnitus, hearing loss, ear discharge, ear pain, THROAT: Denies acute: sore throat, swelling, difficulty swallowing , pain with swa llowing, change in voice. NECK: Denies acute: neck pain, neck swelling, stiff neck. HEART: Denies acute : chest pain, palpitations, LUNGS: Denies acute: SOB, wheezing, cough, hemoptysis ABDOMEN: Denies acute: abdominal pain, Nausea, Vomiting, diarrhea, melena , hematemesis, hematochezia SKIN: Denies acute: rash, redness, lesions, itchiness. EXTREMITIES: Denies acute: calf pain, numbness, tingling, weakness, denies pain in extremity. Neuro: Denies acute: focal neurological deficit, motor or sensory focal neurological deficit, tremors, seizure like activity, confusion, dizziness, change in mental status, loss of bowel or bladder function, cauda equina like symptoms. : Denies acute: dysuria, hematuria, flank pain, increase in urinary frequency. PSYCH: Denies acute: hallucination, suicidal ideation, homicidal ideation. FEMALE: Denies acute: abnormal vaginal bleeding, foul odor, unusual discharge. PHYSICAL EXAM: General: no acute distress, awake and alert. Head: normocephalic, atraumatic. Neck: supple, trachea is midline, no swelling. Throat: Normal phonation. Eyes:, no erythema, no purulent discharge, no proptosis, no icterus. Heart: regular rate, regular rhythm, no significant murmur appreciated. Lungs: no apparent respiratory distress, Able to speak in full sentences. No wheezing, no rhonchi, no crackles. No stridors Clear to auscultation bilaterally. Abdomen: non tender to palpation, non distended, soft, no guarding, no rebound, + bowel sounds. Neuro: Awake, Alert, oriented to name, self, situation, follows commands GCS=15. Speech is normal. Skin: no petechia, no purpura, no cyanosis, non-pale, not jaundice. Lower extremities: --no - Pitting edema no deformity, no focal swelling, no calf TTP. Makes eye contact. moves all four extremities. Evaluation of the area of pain and complaint: Patient points specifically to the right-sided lumbosacral posterior iliac crest region where her pain is. No apparent swelling. Face: no apparent facial droop. No CVA tenderness to percussion bilaterally. Ambulating in the ED independently. ED COURSE: Chief Complaint: Back Pain Time Seen by MD: 19:10 Primary Care Provider: none Reviewed Notes: Nurses Notes, Medications, Allergies Allergies: Coded Allergies: NO KNOWN ALLERGIES (Unverified , 05/14/13) Home Meds Active Scripts Nitrofurantoin Monohydrate Mac (Macrobid) 100 Mg Cap, 100 MG PO BID for 7 Days, #14 CAP Prov:ANN VALDERRAMA DO 10/11/24 Cephalexin Monohydrate (Cephalexin) 500 Mg Cap, 500 MG PO Q8HR for 7 Days, #21 CAP Prov:ANN VALDERRAMA DO 06/13/24 Sucralfate (Sucralfate) 1 Gm Tab, 1 GM PO TID for 20 Days, #60 TAB Prov:SAEED MORGAN RESIDENT 03/20/24 Pantoprazole Sodium Sesquihydr (Pantoprazole Sodium) 40 Mg Tab, 40 MG PO BID for 30 Days, #60 TAB Prov:SAEED MORGAN RESIDENT 03/20/24 Reported Medications Enalapril Maleate (Enalapril Maleate) 2.5 Mg Tab, 10 MG PO QPM for 30 Days, MG 03/18/24 Aspirin (Asa) 81 Mg Ch, 81 MG GT 05/14/13 Hydrochlorothiazide (Hydrochlorothiazide) 12.5 Mg Cap, 12.5 MG PO 05/14/13 Information Source: Patient Mode of Arrival: Ambulatory Timing: Days Duration: Since onset Past Medical History PAST MEDICAL HISTORY: HTN Surgical History: BTL, Cholecystectomy CLINICAL RESEARCH PHYSICIAN History: Denies all CLINICAL RESEARCH PHYSICIAN Hx Family History Family History: Reviewed,noncontributory to illness Social History Smoker: Non-Smoker Alcohol: Denies ETOH Use Drugs: Denies Drug Use Lives In: Home Was a procedure done? Was a procedure done?: No EKG EKG : Pulse Rate (adult): 72 [place]: Normal Cardiac Rhythm: NSR Block: None Hypertrophy: None ST: Normal Back Pain Differential Dx Differential Diagnosis: Other (DDX included but not limited to Cauda Equina syndrome, lumbar radiculopathy, arthritis, disk herniation, sciatica, muscle strain, epidural abscess, transverse myelitis. Cord compression, spinal foraminal stenosis, spinal fractures, spondylosis, central canal stenosis, trauma, muscle sprain/strain, aneurysm/dissection, kidney stones, shingles, arthritis, Guillan Woden, neoplasm.) X-Ray, Labs, Meds, VS Vital Signs Date Time Temp Pulse Resp B/P (MAP) Pulse Ox O2 Delivery O2 Flow Rate FiO2 10/11/24 00:35 67 14 97 Room Air* 0 21 10/11/24 00:35 97.5 67 14 148/72 (97) 97 97.5 10/10/24 22:48 72 10/10/24 19:02 72 10/10/24 19:01 97.8 78 17 115/61 (79) 96 97.8 Lab Test 10/10/24 20:33 10/10/24 19:40 10/10/24 19:21 Range/Units Troponin I High Sensitivity 3 L 3 L </=34 ng/L Urine Color Colorless Yellow Urine Clarity Clear Clear Urine pH 5.5 5.0-9.0 Urine Specific [place] 1.003 1.001-1.035 Urine Protein Negative Negative Urine Ketones Negative Negative Urine Blood Negative Negative /uL Urine Nitrite Negative Negative Urine Bilirubin Negative Negative Urine Urobilinogen Normal Negative mg/dL Urine Leukocyte Esterase Trace Negative /uL Urine RBC <1 0 - 4 /hpf Urine Microscopic WBC < 1 0-5 /HPF Urine Squamous Epithelial Cells Few <5 /hpf Urine Bacteria Few H None Seen /hpf Urine Glucose Normal Normal mg/dL White Blood Count 7.3 4.4-10.8 10^3/uL Red Blood Count 4.21 4.0-5.20 10^6/uL Hemoglobin 12.7 12.2-16.2 g/dL Hematocrit 38.5 36.0-46.0 % Mean Corpuscular Volume 91.6 80.0-100.0 fL Mean Corpuscular Hemoglobin 30.3 28.0-32.0 pg Mean Corpuscular Hemoglobin Concent 33.1 32.0-36.0 g/dL Red Cell Distribution Width 14.2 11.8-14.3 % Platelet Count 192 140-450 10^3/uL Mean Platelet Volume 8.4 6.9-10.8 fL Neutrophils (%) (Auto) 57.8 37.0-80.0 % Lymphocytes (%) (Auto) 33.2 10.0-50.0 % Monocytes (%) (Auto) 5.9 0.0-12.0 % Eosinophils (%) (Auto) 2.5 0.0-7.0 % Basophils (%) (Auto) 0.6 0.0-2.0 % Neutrophils # (Auto) 4.2 1.6-8.6 10 ^3/uL Lymphocytes # (Auto) 2.4 0.4-5.4 10 ^3/uL Monocytes # (Auto) 0.4 0-1.3 10 ^3/uL Eosinophils # (Auto) 0.2 0-0.8 10 ^3/uL Basophils # (Auto) 0 0-0.2 10 ^3/uL Nucleated Red Blood Cells 0.0 % Erythrocyte Sedimentation Rate 15 0-20 mm/hr Sodium Level 138 136-145 mmol/L Potassium Level 4.2 3.5-5.1 mmol/L Chloride Level 105 98-107 mmol/L Carbon Dioxide Level 26 20-31 mmol/L Anion Gap 7 5-15 Blood Urea Nitrogen 14 9-23 mg/dL Creatinine 0.89 0.550-1.02 mg/dL Glomerular Filtration Rate Calc 68 >90 mL/min BUN/Creatinine Ratio 15.7 10.0-20.0 Serum Glucose 166 H 74-106 mg/dL Lactic Acid Level 1.5 0.4-2.0 mmol/L Calcium Level 9.8 8.7-10.4 mg/dL Total Bilirubin 0.3 0.2-1.0 mg/dL Aspartate Amino Transferase (AST) 21 13-40 U/L Alanine Aminotransferase (ALT) 12 7-40 U/L Alkaline Phosphatase 85 46-116 U/L C-Reactive Protein High Sensitivity 0.18 <1.0 mg/dL Total Protein 7.1 5.7-8.2 g/dL Albumin 4.8 3.2-4.8 g/dL Current Medications Medications (Trade) Dose Ordered Sig/Oli Route Start Time Stop Time Status Last Admin Acetaminophen/ Hydrocodone Bitart ([place] 5/325MG Tab) 1 tab ONCE ONCE PO 10/10/24 21:00 10/10/24 21:01 DC 10/11/24 00:44 Prednisone 20 mg STAT ONCE PO 10/10/24 21:00 10/10/24 21:01 DC 10/11/24 00:44 [place] [address] Ph: [phone] DIAGNOSTIC IMAGING Diagnostic Imaging Report : [id number] Signed PATIENT: KIN HAMEED ACCT: [id number] UNIT: [id number] : 1950 LOC: ER ROOM / BED: / AGE / SEX: 74 / F ADM STATUS: REG ER SERVICE 08 ORDERING PHYSICIAN: ANN VALDERRAMA DO PROCEDURE(s): ABPL - CT AB PEL WO CON-NO ORAL OR IV REASON: R lumbosacral pain ORDER NUMBER(s): [id number], ACCESSION NUMBER(s): [id number] Exam: CT CT AB PEL WO CON-NO ORAL OR IV History: R lumbosacral pain Comparison Study: CT CT AB PEL WO CON-NO ORAL OR IV on DOS: 03/17/24 Technique: Multidetector spiral CT of the abdomen was performed from lung bases to pubic symphysis. Imaging was performed without IV contrast. Axial, coronal and sagittal multiplanar reformats were obtained from the axial data set by the technologist. Radiation Dose : 1. Abdomen/Pelvis: CTDIvol 21.69 mGy, DLP 1096.97 mGy*cm. Findings: Evaluation of solid organs is limited due to lack of intravenous contrast use. Lung Bases: No acute or significant lung base finding. Normal heart size. No pleural or pericardial effusion. Liver: The liver is normal in size. No focal lesions. Gallbladder and Biliary Tree: Status post cholecystectomy. Spleen: Unremarkable Pancreas: The pancreas is grossly normal in appearance. Adrenal Glands: Unremarkable Kidneys: Kidneys are grossly normal without calculi or hydronephrosis. Bladder: Grossly unremarkable for degree of distention. Bowel: The stomach is grossly normal in appearance. Small bowel and colon are normal in caliber and distribution. Normal appendix is visualized in the right lower quadrant without findings of appendicitis. Colonic diverticulosis without evidence of diverticulitis. Ascites: Absent Lymphadenopathy: No mesenteric, retroperitoneal or periportal lymphadenopathy. Abdominal Wall and Mesentery: Small fat containing ventral hernia in the upper midline abdomen. Vasculature: The visualized abdominal aorta is normal in size and caliber. Evaluation of abdominal and pelvic vessels is limited due to lack of intravenous contrast. Pelvic Organs: Unremarkable Musculoskeletal: No aggressive focal bony lesions, acute fractures or dislocation. Grade 1 retrolisthesis of L4 on L5 secondary to bilateral pars interarticularis defects. Chronic compression fracture of the L5 vertebral body. IMPRESSION: 1. No acute intra-abdominal findings identified. 2. Grade 1 retrolisthesis of L4 on L5 secondary to bilateral pars interarticularis defects. Consider MRI lumbar spine for further characterization. 3. Chronic compression fracture of the L5 vertebral body. Radiation optimization: All CT scans at this facility use at least one of these dose optimization techniques: automated exposure control mA and/or kV adjustment per patient size (includes targeted exams where dose is matched to clinical indication) or iterative reconstruction. ATED BY: DARRELL FOWLER MD DICTATED DATE/TIME: 10/10/242008 SIGNED BY: DARRELL FOWLER MD SIGNED DATE/TIME: 10/10/242008 CC: Time of 1ST Reevaluation: 19:10 Reevaluation 1ST: Unchanged Patient Education/Counseling: Diagnosis, Treatment Family Education/Counseling: No Family Present Comments Patient presented with the above HPI. Back pain workup was initiated. patient was found with the above mentioned diagnosis. the following medications were ordered: please refer to order lists of meds and tests obtained [facility] Val[place]. Patient ED course and VS have been stabilized. Patient has been reassessed in the ED and remained in a stable condition. Pertinent incidental findings were discussed with the patient and/or family. Patient/family voices understanding and is agreeable with plan. Patient has been observed in the ED adequate length of time to insure improvement/stability. Escalation of care considered: Consideration of escalation to observation or admission Patient was DISCHARGED home in a stable condition. All the reports of any imaging studies that were ordered by myself were reviewed by myself. Departure 1 Departure Time of Disposition: 22:46 Impression: Primary Impression: Musculoskeletal pain Additional Impressions: Compression fracture of L5 vertebra Low back pain UTI (urinary tract infection) Disposition: HOME / SELF CARE / HOMELESS Condition: Stable Additional Instructions: Additional discharge instructions: You MUST follow-up with your primary care/family doctor in 1 to 2 days. If you are unable to see your primary care/family doctor, please return to our emergency room for re-assessment and re-evaluation in 1 to 2 days. Return to the emergency room here in our facility or to the nearest ER [facility] if your symptoms change or worsen. CONSULTATIONS: you MUST Follow-up for consultation as soon as possible with: -spine doctor orthopedic doctor in 1-2 days. Please call for appointment. You MUST call the consultants office yourself to make an appointment. You may need to arrange that through your insurance and/or your primary/family doctor. If you are unable to see the furniture sales consultant in 1 to 2 days, you must return to our emergency room (or any other ER of your choice) for re-assessment and re- evaluation. Adequate fluid hydration. No heavy lifting. Below is a copy of your radiological report for follow up: [address] [address] Ph: [phone] DIAGNOSTIC IMAGING Diagnostic Imaging Report : [id number] Signed PATIENT: KIN HAMEED ACCT: [id number] UNIT: [id number] : 1950 LOC: ER ROOM / BED: / AGE / SEX: 74 / F ADM STATUS: REG ER SERVICE 08 ORDERING PHYSICIAN: ANN VALDERRAMA DO PROCEDURE(s): ABPL - CT AB PEL WO CON-NO ORAL OR IV REASON: R lumbosacral pain ORDER NUMBER(s): [id number], ACCESSION NUMBER(s): [id number] Exam: CT CT AB PEL WO CON-NO ORAL OR IV History: R lumbosacral pain Comparison Study: CT CT AB PEL WO CON-NO ORAL OR IV on DOS: 03/17/24 Technique: Multidetector spiral CT of the abdomen was performed from lung bases to pubic symphysis. Imaging was performed without IV contrast. Axial, coronal and sagittal multiplanar reformats were obtained from the axial data set by the technologist. Radiation Dose : 1. Abdomen/Pelvis: CTDIvol 21.69 mGy, DLP 1096.97 mGy*cm. Findings: Evaluation of solid organs is limited due to lack of intravenous contrast use. Lung Bases: No acute or significant lung base finding. Normal heart size. No pleural or pericardial effusion. Liver: The liver is normal in size. No focal lesions. Gallbladder and Biliary Tree: Status post cholecystectomy. Spleen: Unremarkable Pancreas: The pancreas is grossly normal in appearance. Adrenal Glands: Unremarkable Kidneys: Kidneys are grossly normal without calculi or hydronephrosis. Bladder: Grossly unremarkable for degree of distention. Bowel: The stomach is grossly normal in appearance. Small bowel and colon are normal in caliber and distribution. Normal appendix is visualized in the right lower quadrant without findings of appendicitis. Colonic diverticulosis without evidence of diverticulitis. Ascites: Absent Lymphadenopathy: No mesenteric, retroperitoneal or periportal lymphadenopathy. Abdominal Wall and Mesentery: Small fat containing ventral hernia in the upper midline abdomen. Vasculature: The visualized abdominal aorta is normal in size and caliber. Evaluation of abdominal and pelvic vessels is limited due to lack of intravenous contrast. Pelvic Organs: Unremarkable Musculoskeletal: No aggressive focal bony lesions, acute fractures or dislocation. Grade 1 retrolisthesis of L4 on L5 secondary to bilateral pars interarticularis defects. Chronic compression fracture of the L5 vertebral body. IMPRESSION: 1. No acute intra-abdominal findings identified. 2. Grade 1 retrolisthesis of L4 on L5 secondary to bilateral pars interarticularis defects. Consider MRI lumbar spine for further characterization. 3. Chronic compression fracture of the L5 vertebral body. Radiation optimization: All CT scans at this facility use at least one of these dose optimization techniques: automated exposure control mA and/or kV adjustment per patient size (includes targeted exams where dose is matched to clinical indication) or iterative reconstruction. ATED BY: DARRELL FOWLER MD DICTATED DATE/TIME: 10/10/242008 SIGNED BY: DARRELL FOWLER MD SIGNED DATE/TIME: 10/10/242008 CC: e-Prescriptions Nitrofurantoin Monohydrate Mac (Macrobid) 100 Mg Cap 100 MG PO BID for 7 Days, #14 CAP Prov: ANN VALDERRAMA DO 10/11/24 Discharged With: Self Critical Care Note Critical Care Time?: No I personally scribed for ANN VALDERRAMA DO ([email or web address]) on 10/10/24 at 19:17. Electronically submitted by Rashard Hernandez ([email or web address]). I personally scribed for ANN VALDERRAMA DO ([email or web address]) on 10/10/24 at 21:25. Electronically submitted by Rashard Hernandez ([email or web address]). I personally scribed for ANN VALDERRAMA DO ([email or web address]) on 10/10/24 at 22:48. Electronically submitted by Rashard Hernandez ([email or web address]). ANN VALDERRAMA DO Oct 10, 2024 19:17
[2024-10-10 19:36] LABS: Basophils # (auto) 0 10 ^3/uL (0-0.2); Basophils % (auto) 0.6 % (0.0-2.0); Eosinophils # (auto) 0.2 10 ^3/uL (0-0.8); Eosinophils % (auto) 2.5 % (0.0-7.0); Hematocrit 38.5 % (36.0-46.0); Hemoglobin 12.7 g/dL (12.2-16.2); Lymphocytes # (auto) 2.4 10 ^3/uL (0.4-5.4); Lymphocytes % (auto) 33.2 % (10.0-50.0); Mean Corpuscular Hemoglobin 30.3 pg (28.0-32.0); Mean Corpuscular Hgb Conc. 33.1 g/dL (32.0-36.0); Mean Corpuscular Volume 91.6 fL (80.0-100.0); Monocytes # (auto) 0.4 10 ^3/uL (0-1.3); Monocytes % (auto) 5.9 % (0.0-12.0); Neutrophils # (auto) 4.2 10 ^3/uL (1.6-8.6); Neutrophils % (auto) 57.8 % (37.0-80.0); Platelet Count (auto) 192 10^3/uL (140-450); Red Blood Cells 4.21 10^6/uL (4.0-5.20); Red Cell Distribution Width 14.2 % (11.8-14.3); White Blood Cell 7.3 10^3/uL (4.4-10.8)
[2024-10-10 19:51] LABS: Alanine Aminotransferase 12 U/L (7-40); Albumin 4.8 g/dL (3.2-4.8); Alkaline Phosphatase 85 U/L (46-116); Anion Gap 7 (5-15); Aspartate Aminotransferase 21 U/L (13-40); BUN/Creatinine Ratio 15.7 (10.0-20.0); Blood Urea Nitrogen 14 mg/dL (9-23); CRP High Sensitivity 0.18 mg/dL (<1.0); Calcium 9.8 mg/dL (8.7-10.4); Carbon Dioxide 26 mmol/L (20-31); Chloride 105 mmol/L (98-107); Potassium 4.2 mmol/L (3.5-5.1); Sodium 138 mmol/L (136-145); Total Protein 7.1 g/dL (5.7-8.2)
[2024-10-10 19:55] LABS: Bilirubin, Total 0.3 mg/dL (0.2-1.0); Glucose 166 mg/dL (74-106)
[2024-10-10 20:02] LABS: Urine Bacteria FEW /hpf (None Seen); Urine Blood Negative /uL (Negative); Urine Clarity Clear (Clear); Urine Color Colorless (Yellow); Urine Protein, UAD Negative (Negative); Urine Specific Gravity 1.003 (1.001-1.035); Urine Squamous Epithelial Cell FEW /hpf (<5); Urine Urobilinogen Normal (Negative); Urine WBC < 1 /HPF (0-5); Urine pH 5.5 (5.0-9.0)
--- NOTE | 2024-10-10 20:11 | DVH ---
Exam: CT CT AB PEL WO CON-NO ORAL OR IV History: R lumbosacral pain Comparison Study: CT CT AB PEL WO CON-NO ORAL OR IV on DOS: 03/17/24 Technique: Multidetector spiral CT of the abdomen was performed from lung bases to pubic symphysis. Imaging was performed without IV contrast. Axial, coronal and sagittal multiplanar reformats were ob tained from the axial data set by the technologist. Radiation Dose : 1. Abdomen/Pelvis: CTDIvol 21.69 mGy, DLP 1096.97 mGy*cm. Findings: Evaluation of solid organs is limited due to lack of intravenous contrast use. Lung Bases: No acute or significant lung base finding. Normal heart size. No pleural or pericardial effusion. Liver: The liver is normal in size. No focal lesions. Gallbladder and Biliary Tree: Status post cholecystectomy. Spleen: Unremarkable Pancreas: The pancreas is grossly normal in appearance. Adrenal Glands: Unremarkable Kidneys: Kidneys are grossly normal without calculi or hydronephrosis. Bladder: Grossly unremarkable for degree of distention. Bowel: The stomach is grossly normal in appearance. Small bowel and colon are normal in caliber and d istribution. Normal appendix is visualized in the right lower quadrant without findings of appendici tis. Colonic diverticulosis without evidence of diverticulitis. Ascites: Absent Lymphadenopathy: No mesenteric, retroperitoneal or periportal lymphadenopathy. Abdominal Wall and Mesentery: Small fat containing ventral hernia in the upper midline abdomen. Vasculature: The visualized abdominal aorta is normal in size and caliber. Evaluation of abdominal a nd pelvic vessels is limited due to lack of intravenous contrast. Pelvic Organs: Unremarkable Musculoskeletal: No aggressive focal bony lesions, acute fractures or dislocation. Grade 1 retrolisth esis of L4 on L5 secondary to bilateral pars interarticularis defects. Chronic compression fracture o f the L5 vertebral body. IMPRESSION: 1. No acute intra-abdominal findings identified. 2. Grade 1 retrolisthesis of L4 on L5 secondary to bilateral pars interarticularis defects. Consider MRI lumbar spine for further characterization. 3. Chronic compression fracture of the L5 vertebral body. Radiation optimization: All CT scans at this facility use at least one of these dose optimization gilbert hniques: automated exposure control mA and/or kV adjustment per patient size (includes targeted exam s where dose is matched to clinical indication) or iterative reconstruction.
[2024-10-10 20:19] LABS: Erythrocyte Sedimentation Rate 15 mm/hr (0-20)
[2024-10-10] MEDS ORDERED: NITR-87 PO (22:47)
[2024-10-11 00:35] VITALS: BP 148/72; PULSE 67; RESP 14; TEMP 97.5; O2SAT 97
[2024-10-11] MEDS: predniSONE 20 MG TAB PO ONE (00:44)
[2024-10-11] MEDS: HYDROcodone-ACET 5/325MG TAB PO ONE (00:44)
== END 2024-10-11 01:49 | disposition home or self-care (01) ==
LOC: ER 18:51
DX: M48.56XA Collapsed vertebra, not elsewhere classified, lumbar region, initial encounter for fracture (principal); N39.0 Urinary tract infection, site not specified; M79.18 Myalgia, other site; R94.31 Abnormal electrocardiogram [ECG] [EKG]; E66.9 Obesity, unspecified; I10 Essential (primary) hypertension; Z79.899 Other long term (current) drug therapy; Z90.49 Acquired absence of other specified parts of digestive tract; Z98.51 Tubal ligation status; Z68.35 Body mass index [BMI] 35.0-35.9, adult; X58.XXXA Exposure to other specified factors, initial encounter; Y93.89 Activity, other specified; Y92.89 Other specified places as the place of occurrence of the external cause; Y99.8 Other external cause status
CPT/HCPCS: 36415; 74176; 80053; 81001; 83605; 84484; 85025; 85652; 86141; 93005; 99284; J7512

== ENCOUNTER 2025-05-05 18:47 | Emergency (ER) | payer MEDICAID ==
[~2025-05-05] VITALS: Ht 157.5 cm; Wt 76.5 kg
[~2025-05-05 18:47] MED LIST changes: +NITR-87 PO
[2025-05-05 20:20] VITALS: BP 138/46; RESP 18; TEMP 98.7; O2SAT 95
[2025-05-05 20:40] LABS: COVID19 ANTIGEN SOFIA FIA NEGATIVE (NEGATIVE)
[2025-05-05 21:30] LABS: Hematocrit 39.2 % (36.0-46.0); Hemoglobin 13.1 g/dL (12.2-16.2); Mean Corpuscular Hemoglobin 31.2 pg (28.0-32.0); Mean Corpuscular Volume 93.5 fL (80.0-100.0); Nucleated Red Blood Cells % 0.1 %
--- NOTE | 2025-05-05 21:41 | DVH ---
EXAM: CT CT AB PEL WO CON-NO ORAL OR IV INDICATION: abd pain diffuse TECHNIQUE: Volumetric multidetector CT images of the abdomen and pelvis were obtained without contras t. All CT scans at this facility use dose modulation, iterative reconstruction, and/or weight based d osing when appropriate to reduce radiation dose to as low as reasonably achievable. COMPARISON: CT CT AB PEL WO CON-NO ORAL OR IV on DOS: 10/10/24 FINDINGS: [LOWER CHEST]: The partially visualized lung bases are clear without a pleural effusion. The cardiac size is normal without pericardial effusion. coronary artery calcifications. [LIVER]: Normal hepatic size without suspicious focal lesion. [GALLBLADDER AND BILIARY TREE]: Surgically absent. [SPLEEN]: Unremarkable. [PANCREAS]: Unremarkable. [ADRENAL GLANDS]: Unremarkable [KIDNEYS]: No hydronephrosis. No nephroureterolithiasis. Benign cysts of the left kidney [BLADDER]: Unremarkable for the degree distention. [REPRODUCTIVE ORGANS]: Unremarkable. [BOWEL/MESENTERY]: Stomach is normal. Air-fluid level of the stomach without abnormal gastric wall th ickening. Mild ascending and descending and sigmoid colonic diverticulosis. [ASCITES]: Absent [LYMPHADENOPATHY]: No pathologically enlarged lymph nodes by CT size criteria [VASCULATURE]: No aneurysmal dilatation. [ABDOMINAL WALL]: Unremarkable. [MUSCULOSKELETAL]: No acute fracture or aggressive focal osseous lesion. Multifocal degenerative castillo ge of the visualized spine. grade 2 anterolisthesis L5 over S1 and retrolisthesis L4 over L5. IMPRESSION: 1. No CT evidence of an acute abdominal/pelvic process. 2. Mild colonic diverticulosis. 3. Air-fluid distention of the stomach without gastric wall thickening correlate with clinical exam t o exclude gastritis.
[2025-05-05 21:56] LABS: Alanine Aminotransferase 25 U/L (7-40); Albumin 4.7 g/dL (3.2-4.8); Alkaline Phosphatase 82 U/L (46-116); Anion Gap 10 (5-15); BUN/Creatinine Ratio 17.9 (10.0-20.0); Blood Urea Nitrogen 24 mg/dL (9-23); Calcium 9.7 mg/dL (8.7-10.4); Carbon Dioxide 26 mmol/L (20-31); Chloride 103 mmol/L (98-107); Glucose 116 mg/dL (74-106); Lipase 59 U/L (12-53); Potassium 4.5 mmol/L (3.5-5.1); Sodium 139 mmol/L (136-145); Total Protein 7.6 g/dL (5.7-8.2)
[2025-05-05 21:57] LABS: Bilirubin, Total 0.2 mg/dL (0.2-1.0)
[2025-05-05 23:01] LABS: Urine Protein, UAD TRACE (Negative)
[2025-05-05] MEDS: MAALOX PLUS or MAALOX 30 ML PO ONE (23:45)
[2025-05-05] MEDS: LIDOCAINE VISCOUS 2% 15ML UD MT ONE (23:45)
[2025-05-05] MEDS: DONNATAL 5ml ORAL Elix (BELLADONNA ALK-PHENOBARB) PO ONE (23:46)
--- NOTE | 2025-05-06 00:11 | ED.PDOC ---
GI ASSESSMENT HPI Comments 75-year-old female presents to the ED chief complaint abdominal pain. She reports abdominal pain x3 days along with nausea vomiting, diarrhea and general weakness. Has taken [id number] medications with 0 relief. Denies difficulty breathing, shortness of breath, chest pain, fever, chills, or recent travel. Chief Complaint: Flu like Time Seen by MD: 19:14 Primary Care Provider: none Reviewed Notes: Nurses Notes, Medications, Allergies Allergies: Coded Allergies: NO KNOWN ALLERGIES (Unverified , 05/14/13) Home Meds Active Scripts Famotidine (PEPCID TABLET) 20 Mg Tb, 1 TAB PO BID for 7 Days, #14 TAB Prov:ANALY ESCOBAR [employer]ATE 05/06/25 Ciprofloxacin Hcl (Cipro) 500 Mg Tab, 500 MG PO BID for 5 Days, #10 TAB Prov:ANALY ESCOBARP 05/06/25 Nitrofurantoin Monohydrate Mac (Macrobid) 100 Mg Cap, 100 MG PO BID for 7 Days, #14 CAP Prov:ANN VALDERRAMA DO 10/11/24 Cephalexin Monohydrate (Cephalexin) 500 Mg Cap, 500 MG PO Q8HR for 7 Days, #21 CAP Prov:ANN VALDERRAMA DO 06/13/24 Sucralfate (Sucralfate) 1 Gm Tab, 1 GM PO TID for 20 Days, #60 TAB Prov:SAEED MORGAN RESIDENT 03/20/24 Pantoprazole Sodium Sesquihydr (Pantoprazole Sodium) 40 Mg Tab, 40 MG PO BID for 30 Days, #60 TAB Prov:SAEED MORGAN RESIDENT 03/20/24 Reported Medications Enalapril Maleate (Enalapril Maleate) 2.5 Mg Tab, 10 MG PO QPM for 30 Days, MG 03/18/24 Aspirin (Asa) 81 Mg Ch, 81 MG GT 05/14/13 Hydrochlorothiazide (Hydrochlorothiazide) 12.5 Mg Cap, 12.5 MG PO 05/14/13 Information Source: Patient Mode of Arrival: Ambulatory Past Medical History PAST MEDICAL HISTORY: HTN Surgical History: BTL, Cholecystectomy [employer]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 [employer]CH[employer]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 Hx Family History Family History: Reviewed,noncontributory to illness Social History Smoker: Non-Smoker Alcohol: Denies ETOH Use Drugs: Denies Drug Use Lives In: Home All Other Systems: Reviewed and Negative (see hpi) Physical Exam General Appearance: No Apparent Distress, Normal HEENT: Normal ENT Inspection, Pharynx Normal, TMs Normal Neck: Full Range of Motion, Non-Tender Respiratory: Lungs Clear, No Respiratory Distress, Normal Breath Sounds Cardiovascular: No Edema, No JVD, No Murmur, No Gallop, Normal Peripheral Pulses, Regular Rate/Rhythm Breast Exam: Deferred Gastrointestinal: Diffuse (Tenderness), No Organomegaly, No Pulsatile Mass, Normal Bowel Sounds, Soft Genitalia: Deferred Pelvic: Deferred Rectal: Deferred Extremities: Normal capillary refill, Normal range of motion, No pedal edema Musculoskeletal : Apperance: Normal Neurologic: Alert, No Motor Deficits, Normal Affect, Normal Mood, No Sensory Deficits Cerebellar Function: Normal Reflexes: NOT DONE Skin: Dry, Normal Color, Warm Lymphatic: No Adenopathy Was a procedure done? Was a procedure done?: No GI differential Dx Differential Diagnosis: Aortic dissection, Bowel Obstruction, Cholangitis, Cholecystitis, Constipation, Diverticular disease, Gastritis/PUD, Gastroenteritis, UTI, Urolithiasis, Food Poisoning, Bacterial, Parasitic, Viral, Impaction X-Ray, Labs, Meds, VS Vital Signs Date Time Temp Pulse Resp B/P (MAP) Pulse Ox O2 Delivery O2 Flow Rate FiO2 05/06/25 00:33 56 05/05/25 20:20 65 18 95 Room Air 05/05/25 20:20 98.7 65 18 138/46 (76) 95 98.7 05/05/25 18:50 97.7 76 18 132/50 95 97.7 Lab Test 05/05/25 22:09 05/05/25 21:15 05/05/25 20:55 05/05/25 19:42 Range/Units Troponin I High Sensitivity 4 4 </=34 ng/L White Blood Count 12.0 H 4.4-10.8 10^3/uL Red Blood Count 4.19 4.0-5.20 10^6/uL Hemoglobin 13.1 12.2-16.2 g/dL Hematocrit 39.2 36.0-46.0 % Mean Corpuscular Volume 93.5 80.0-100.0 fL Mean Corpuscular Hemoglobin 31.2 28.0-32.0 pg Mean Corpuscular Hemoglobin Concent 33.4 32.0-36.0 g/dL Red Cell Distribution Width 14.3 11.8-14.3 % Platelet Count 208 140-450 10^3/uL Mean Platelet Volume 8.2 6.9-10.8 fL Neutrophils (%) (Auto) 72.8 37.0-80.0 % Lymphocytes (%) (Auto) 18.9 10.0-50.0 % Monocytes (%) (Auto) 6.4 0.0-12.0 % Eosinophils (%) (Auto) 1.4 0.0-7.0 % Basophils (%) (Auto) 0.5 0.0-2.0 % Neutrophils # (Auto) 8.8 H 1.6-8.6 10 ^3/uL Lymphocytes # (Auto) 2.3 0.4-5.4 10 ^3/uL Monocytes # (Auto) 0.8 0-1.3 10 ^3/uL Eosinophils # (Auto) 0.2 0-0.8 10 ^3/uL Basophils # (Auto) 0.1 0-0.2 10 ^3/uL Nucleated Red Blood Cells 0.1 % Sodium Level 139 136-145 mmol/L Potassium Level 4.5 3.5-5.1 mmol/L Chloride Level 103 98-107 mmol/L Carbon Dioxide Level 26 20-31 mmol/L Anion Gap 10 5-15 Blood Urea Nitrogen 24 H 9-23 mg/dL Creatinine 1.34 H 0.550-1.02 mg/dL Glomerular Filtration Rate Calc 41 >90 mL/min BUN/Creatinine Ratio 17.9 10.0-20.0 Serum Glucose 116 H 74-106 mg/dL Calcium Level 9.7 8.7-10.4 mg/dL Total Bilirubin 0.2 0.2-1.0 mg/dL Aspartate Amino Transferase (AST) 26 13-40 U/L Alanine Aminotransferase (ALT) 25 7-40 U/L Alkaline Phosphatase 82 46-116 U/L Total Protein 7.6 5.7-8.2 g/dL Albumin 4.7 3.2-4.8 g/dL Lipase 59 H 12-53 U/L Urine Color Yellow Yellow Urine Clarity Turbid H Clear Urine pH 5.0 5.0-9.0 Urine Specific Wh[place]am 1.024 1.001-1.035 Urine Protein Trace H Negative Urine Ketones Trace Negative Urine Blood Negative Negative /uL Urine Nitrite Negative Negative Urine Bilirubin Negative Negative Urine Urobilinogen Normal Negative mg/dL Urine Leukocyte Esterase 1+ Negative /uL Urine RBC 4 0 - 4 /hpf Urine Microscopic WBC 19 H 0-5 /HPF Urine Squamous Epithelial Cells Few <5 /hpf Urine Bacteria Few H None Seen /hpf Urine Hyaline Casts Many 0 - 2 /lpf Urine Mucus Few None Seen Urine Glucose Normal Normal mg/dL Influenza Type A Antigen Negative Negative Influenza Type B Antigen Negative Negative SARS-CoV-2 Antigen (Rapid) Negative NEGATIVE Current Medications Medications (Trade) Dose Ordered Sig/Oli Route Start Time Stop Time Status Last Admin Al Hydrox/Mg Hydrox/Simethicone (Maalox Plus) 30 ml ONCE ONCE PO 05/05/25 23:45 05/05/25 23:46 DC 05/05/25 23:45 Belladonna Alkaloids/ Phenobarbital ( Elixir) 5 ml ONCE ONCE PO 05/05/25 23:45 05/05/25 23:46 DC 05/05/25 23:46 Lidocaine HCl (Xylocaine 2% Viscous) 10 ml ONCE ONCE MT 05/05/25 23:45 05/05/25 23:46 DC 05/05/25 23:45 X-Ray, Labs, Meds, VS Comment IMPRESSION: 1. No CT evidence of an acute abdominal/pelvic process. 2. Mild colonic diverticulosis. 3. Air-fluid distention of the stomach without gastric wall thickening correlate with clinical exam to exclude gastritis. Patient was given a GI cocktail reports pain has resolved. Denies any concerns at this time she is requesting discharge. CBC slight bump in WBC UA positive for infection script trial of Cipro. CT abdomen pelvis shows gastritis we will script trial of famotidine 20 mg twice daily. Troponins negative x2 EKG normal sinus without ectopy or ST elevation. Advised patient to follow up with her PCP call on Thursday schedule a follow up appointment repeat labs CBC and CMP kidney function. Advised to rest increase p.o. fluids with electrolytes. ER return precautions given patient indicates understanding and agrees with discharge plan of care. Time of 1ST Reevaluation: 19:14 Reevaluation 1ST: Unchanged Time of 2ND Reevaluation: 00:24 Reevaluation 2ND: Improved Patient Education/Counseling: Diagnosis, Treatment, Need For Follow Up Family Education/Counseling: No Family Present SEPSIS Sepsis Screen Date sepsis recognized/suspect: May 05, 2025 Time Sepsis recognized/suspect: 1851 Recent Procedure: No On Antibiotic Therapy: No Respiratory Rate >20: No Heart Rate >90: No Temp<36 C (96.8 F) or >38.3 C: No SBP <90 or MAP <65 mmHG: No New Acute Mental Status Change: No Is the patient on CPAP, BIPAP,: No Physician Orders Ct Ab Pel Wo Con-No Oral Or Iv (05/05/25 20:57) Electrocardigram (05/05/25 20:57) Electrocardigram (05/05/25 21:57) Vital Signs Date Time Temp Pulse Resp B/P (MAP) Pulse Ox O2 Delivery O2 Flow Rate FiO2 05/06/25 00:33 56 05/05/25 20:20 65 18 95 Room Air 05/05/25 20:20 98.7 65 18 138/46 (76) 95 98.7 05/05/25 18:50 97.7 76 18 132/50 95 97.7 Laboratory Tests Test 05/05/25 21:15 White Blood Count 12.0 10^3/uL (4.4-10.8) H Medications Medications Dose Ordered Sig/Oli Route Start Time Stop Time Status Last Admin Dose Admin Al Hydrox/Mg Hydrox/Simethicone 30 ml ONCE ONCE PO 05/05/25 23:45 05/05/25 23:46 DC 05/05/25 23:45 Belladonna Alkaloids/ Phenobarbital 5 ml ONCE ONCE PO 05/05/25 23:45 05/05/25 23:46 DC 05/05/25 23:46 Lidocaine HCl 10 ml ONCE ONCE MT 05/05/25 23:45 05/05/25 23:46 DC 05/05/25 23:45 Departure 1 Departure Time of Disposition: 00:24 Impression: Primary Impression: Gastritis Qualified Codes: K29.00 - Acute gastritis without bleeding Additional Impression: UTI (urinary tract infection) Qualified Codes: N30.00 - Acute cystitis without hematuria Disposition: 01 HOME / SELF CARE / HOMELESS Condition: Stable e-Prescriptions Famotidine (PEPCID TABLET) 20 Mg Tb 1 TAB PO BID for 7 Days, #14 TAB Prov: ANALY ESCOBAR [employer]ATE 05/06/25 Ciprofloxacin Hcl (Cipro) 500 Mg Tab 500 MG PO BID for 5 Days, #10 TAB Prov: ANALY ESCOBAR 05/06/25 Discharged With: Self Critical Care Note Critical Care Time?: No Stability Stability form required: ANALY Robins May 06, 2025 00:11
[2025-05-06] MEDS ORDERED: CIPR-173 PO (00:26)
[2025-05-06] MEDS ORDERED: FAMO20TA10 PO (00:26)
[2025-05-06 00:33] VITALS: PULSE 56
--- NOTE | 2025-05-10 09:28 | ECG ---
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
== END 2025-05-06 00:45 | disposition home or self-care (01) ==
LOC: ER 18:47
DX: K29.70 Gastritis, unspecified, without bleeding (principal); N39.0 Urinary tract infection, site not specified; I10 Essential (primary) hypertension; Z20.822 Contact with and (suspected) exposure to COVID-19; Z79.82 Long term (current) use of aspirin; Z79.899 Other long term (current) drug therapy; Z90.49 Acquired absence of other specified parts of digestive tract; Z98.51 Tubal ligation status
CPT/HCPCS: 36415; 74176; 80053; 81001; 83690; 84484; 85025; 87426; 87804; 93005

== ENCOUNTER 2025-05-14 16:04 | Inpatient (IN) | payer MEDICAID ==
[~2025-05-14] VITALS: Ht 160 cm; Wt 75.5 kg
[~2025-05-14 16:04] MED LIST changes: +FAMO20TA10 PO
--- NOTE | 2025-05-14 17:02 | DVH ---
CT HEAD WITHOUT CONTRAST INDICATION: fall COMPARISON: CT CERVICAL WITHOUT CONTRAST on DOS: 05/14/25, CT HEAD WITHOUT CONTRAST on DOS: 06/13/24 TECHNIQUE: CT of the head without intravenous contrast. RADIATION DOSE: CTDIvol: 51 mGy, DLP: 909 mGy*cm FINDINGS: There is no evidence of acute intracranial hemorrhage, extra-axial collection, mass effect, midline s hift, herniation or hydrocephalus. The ventricles, sulci and cisterns are age appropriate. The clark -white differentiation is intact. The visualized paranasal sinuses and mastoid air cells are clear. The surrounding soft tissues and osseous structures are unremarkable. IMPRESSION: 1. No evidence of acute intracranial hemorrhage, mass effect or hydrocephalus.
--- NOTE | 2025-05-14 17:17 | DVH ---
EXAM: CT CERVICAL WITHOUT CONTRAST INDICATION: fall EXAM DATE: 05/14/2025 04:34 PM COMPARISON: None TECHNIQUE: Multiple axial CT images of the cervical spine were obtained using bone algorithm. Axial a nd coronal reformatting was done. Bone and soft tissue windows were reviewed. Radiation Dose Information: CT Dose: CTDI volume is 25 mGy. Dose-length product is 649 mGy*cm FINDINGS: The cervical alignment is intact. No acute cervical spine fracture is identified. The vertebral body heights are intact. No suspicious osseous lesions are identified. Moderate degenerative changes throughout the cervical spine. There is no prevertebral soft tissue swelling. IMPRESSION: 1. No evidence of acute cervical spine fracture or traumatic malalignment. All CT scans at this medical facility are performed using dose modulation techniques as appropriate t o a performed exam including the following: Automated exposure control was utilized; adjustment of th e MA and/or KV according to patient size; and use of iterative reconstruction technique.
--- NOTE | 2025-05-14 17:41 | ED.PDOC ---
Lucian. trauma (HPI) HPI Comments HPI: Ravi 75-year-old female, presents to the ED with occipital head and neck pain following a mechanical fall today. She reports that while using her walker outside, she bent down to pick a flower, causing her walker to steer off. In her attempt to catch the walker, she lost her balance and fell into a sitting p osition and then slammed her head against the floor. Patient denies any LOC but does state having bilateral shoulder discomfort and dizziness s/p fall. Patient is not on any blood thinners and denies syncope. Initial Vitals BP: 170/81 HR: 71 RR: 19 O2: 97% RA Temp: 97.9F Past Medical History: HTN Past Surgical History: Cholecystectomy Social History: Denies ETOH, smoking, and drug use. Allergies: Denies Chief Complaint: Headache Time Seen by MD: 17:30 Primary Care Provider: none Reviewed notes: Allergies Allergies: Coded Allergies: NO KNOWN ALLERGIES (Unverified , 05/14/13) Home Meds Active Scripts Nitrofurantoin Monohydrate Mac (Macrobid) 100 Mg Cap, 100 MG PO BID for 7 Days, #14 CAP Prov:ANN VALDERRAMA DO 10/11/24 Cephalexin Monohydrate (Cephalexin) 500 Mg Cap, 500 MG PO Q8HR for 7 Days, #21 CAP Prov:ANN VALDERRAMA DO 06/13/24 Sucralfate (Sucralfate) 1 Gm Tab, 1 GM PO TID for 20 Days, #60 TAB Prov:SAEED MORGAN RESIDENT 03/20/24 Pantoprazole Sodium Sesquihydr (Pantoprazole Sodium) 40 Mg Tab, 40 MG PO BID for 30 Days, #60 TAB Prov:SAEED MORGAN RESIDENT 03/20/24 Reported Medications Enalapril Maleate (Enalapril Maleate) 2.5 Mg Tab, 10 MG PO QPM for 30 Days, MG 03/18/24 Aspirin (Asa) 81 Mg Ch, 81 MG GT 05/14/13 Hydrochlorothiazide (Hydrochlorothiazide) 12.5 Mg Cap, 12.5 MG PO 05/14/13 Discontinued Scripts Famotidine (PEPCID TABLET) 20 Mg Tb, 1 TAB PO BID for 7 Days, #14 TAB Prov:ANALY ESCOBAR 05/06/25 Ciprofloxacin Hcl (Cipro) 500 Mg Tab, 500 MG PO BID for 5 Days, #10 TAB Prov:ANALY ESCOBAR [facility] 05/06/25 Information Source: Patient Mode of Arrival: Ambulatory Past Medical History PAST MEDICAL HISTORY: HTN Surgical History: BTL, Cholecystectomy [employer]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 Was a procedure done?: No Differential Diagnosis Multiple Trauma: Closed Head Injury Neck Injury: Cervical Muscle Spasm, Cervical Sprain, Cervical Strain X-Ray, Labs, Meds, VS Vital Signs Date Time Temp Pulse Resp B/P (MAP) Pulse Ox O2 Delivery O2 Flow Rate FiO2 05/14/25 16:06 97.9 71 19 170/81 97 97.9 [place] [address] Ph: [phone] DIAGNOSTIC IMAGING Diagnostic Imaging Report : [id number] Signed PATIENT: KIN HERRERAACCT: [id number] UNIT: [id number] : 1950 LOC: ER ROOM / BED: / AGE / SEX: 75 / F ADM STATUS: REG ER SERVICE ORDERING PHYSICIAN: ANN VALDERRAMA DO PROCEDURE(s): CS2 - CERVICAL WITHOUT CONTRAST REASON: fall ORDER NUMBER(s): [id number], ACCESSION NUMBER(s): [id number] EXAM: CT CERVICAL WITHOUT CONTRAST INDICATION: fall EXAM DATE: 05/14/2025 04:34 PM COMPARISON: None TECHNIQUE: Multiple axial CT images of the cervical spine were obtained using bone algorithm. Axial and coronal reformatting was done. Bone and soft tissue windows were reviewed. Radiation Dose Information: CT Dose: CTDI volume is 25 mGy. Dose-length product is 649 mGy*cm FINDINGS: The cervical alignment is intact. No acute cervical spine fracture is identified. The vertebral body heights are intact. No suspicious osseous lesions are identified. Moderate degenerative changes throughout the cervical spine. There is no prevertebral soft tissue swelling. IMPRESSION: 1. No evidence of acute cervical spine fracture or traumatic malalignment. All CT scans at this medical facility are performed using dose modulation techniques as appropriate to a performed exam including the following: Automated exposure control was utilized; adjustment of the MA and/or KV according to patient size; and use of iterative reconstruction technique. ATED BY: DARRELL FOWLER MD DICTATED DATE/TIME: 05/14/251714 SIGNED BY: DARRELL FOWLER MD SIGNED DATE/TIME: 05/14/251714 CC: [place] [address] Ph: [phone] DIAGNOSTIC IMAGING Diagnostic Imaging Report : [id number] Signed PATIENT: KIN HERRERAACCT: [id number] UNIT: [id number] : 1950 LOC: ER ROOM / BED: / AGE / SEX: 75 / F ADM STATUS: REG ER SERVICE 1616 ORDERING PHYSICIAN: ANN VALDERRAMA DO PROCEDURE(s): HWOCT - HEAD WITHOUT CONTRAST REASON: fall ORDER NUMBER(s): [id number], ACCESSION NUMBER(s): [id number] CT HEAD WITHOUT CONTRAST INDICATION: fall COMPARISON: CT CERVICAL WITHOUT CONTRAST on DOS: 05/14/25, CT HEAD WITHOUT CONTRAST on DOS: 06/13/24 TECHNIQUE: CT of the head without intravenous contrast. RADIATION DOSE: CTDIvol: 51 mGy, DLP: 909 mGy*cm FINDINGS: There is no evidence of acute intracranial hemorrhage, extra-axial collection, mass effect, midline shift, herniation or hydrocephalus. The ventricles, sulci and cisterns are age appropriate. The clark-white differentiation is intact. The visualized paranasal sinuses and mastoid air cells are clear. The surrounding soft tissues and osseous structures are unremarkable. IMPRESSION: 1. No evidence of acute intracranial hemorrhage, mass effect or hydrocephalus. ATED BY: DARRELL FOWLER MD DICTATED DATE/TIME: 05/14/251699 SIGNED BY: DARRELL FOWLER MD SIGNED DATE/TIME: 05/14/251699 CC: Time of 1ST Reevaluation: 17:35 Reevaluation 1ST: Unchanged Patient Education/Counseling: Diagnosis, Treatment Family Education/Counseling: No Family Present Departure 1 Departure Additional Instructions: [place] [address] Ph: [phone] DIAGNOSTIC IMAGING Diagnostic Imaging Report : [id number] Signed PATIENT: KIN HERRERA ACCT: [id number] UNIT: [id number] : 1950 LOC: ER ROOM / BED: / AGE / SEX: 75 / F ADM STATUS: REG ER SERVICE 1616 ORDERING PHYSICIAN: ANN VALDERRAMA DO PROCEDURE(s): CS2 - CERVICAL WITHOUT CONTRAST REASON: fall ORDER NUMBER(s): [id number], ACCESSION NUMBER(s): [id number] EXAM: CT CERVICAL WITHOUT CONTRAST INDICATION: fall EXAM DATE: 05/14/2025 04:34 PM COMPARISON: None TECHNIQUE: Multiple axial CT images of the cervical spine were obtained using bone algorithm. Axial and coronal reformatting was done. Bone and soft tissue windows were reviewed. Radiation Dose Information: CT Dose: CTDI volume is 25 mGy. Dose-length product is 649 mGy*cm FINDINGS: The cervical alignment is intact. No acute cervical spine fracture is identified. The vertebral body heights are intact. No suspicious osseous lesions are identified. Moderate degenerative changes throughout the cervical spine. There is no prevertebral soft tissue swelling. IMPRESSION: 1. No evidence of acute cervical spine fracture or traumatic malalignment. All CT scans at this medical facility are performed using dose modulation tech niques as appropriate to a performed exam including the following: Automated exposure control was utilized; adjustment of the MA and/or KV according to patient size; and use of iterative reconstruction technique. ATED BY: DARRELL FOWLER MD DICTATED DATE/TIME: 05/14/251714 SIGNED BY: DARRELL FOWLER MD SIGNED DATE/TIME: 05/14/251714 CC: [address] [address] Ph: [phone] DIAGNOSTIC IMAGING Diagnostic Imaging Report : [id number] Signed PATIENT: KIN HERRREA ACCT: [id number] UNIT: [id number] : 1950 LOC: ER ROOM / BED: / AGE / SEX: 75 / F ADM STATUS: REG ER SERVICE 1616 ORDERING PHYSICIAN: ANN VALDERRAMA DO PROCEDURE(s): HWOCT - HEAD WITHOUT CONTRAST REASON: fall ORDER NUMBER(s): [id number], ACCESSION NUMBER(s): [id number] CT HEAD WITHOUT CONTRAST INDICATION: fall COMPARISON: CT CERVICAL WITHOUT CONTRAST on DOS: 05/14/25, CT HEAD WITHOUT CONTRAST on DOS: 06/13/24 TECHNIQUE: CT of the head without intravenous contrast. RADIATION DOSE: CTDIvol: 51 mGy, DLP: 909 mGy*cm FINDINGS: There is no evidence of acute intracranial hemorrhage, extra-axial collection, mass effect, midline shift, herniation or hydrocephalus. The ventricles, sulci and cisterns are age appropriate. The clark-white differentiation is intact. The visualized paranasal sinuses and mastoid air cells are clear. The surrounding soft tissues and osseous structures are unremarkable. IMPRESSION: 1. No evidence of acute intracranial hemorrhage, mass effect or hydrocephalus. ATED BY: DARRELL FOWLER MD DICTATED DATE/TIME: 05/14/251699 SIGNED BY: DARRELL FOWLER MD SIGNED DATE/TIME: 05/14/25 170 CC: Critical Care Note Critical Care Time?: No I personally scribed for IGOR CARPENTER MD ([email or web address]) on 05/14/25 at 17:41. Electronically submitted by Gema Grace ([facility]). I personally scribed for IGOR CARPENTER MD ([email or web address]) on 05/14/25 at 17:49. Electronically submitted by Gema Grace ([facility]). IGOR CARPENTER MD May 14, 2025 17:41
--- NOTE | 2025-05-14 17:50 | ED.PDOC ---
Lucian. trauma (HPI) HPI Comments HPI: Ravi 75-year-old female, presents to the ED with occipital head and neck pain following a mechanical fall today. She reports that while using her walker outside, she bent down to pick a flower, causing her walker to steer off. In her attempt to catch the walker, she lost her balance and fell into a sitting p osition and then slammed her head against the floor. Patient denies any LOC but does state having bilateral shoulder discomfort and dizziness s/p fall. Patient is not on any blood thinners and denies syncope. Initial Vitals BP: 170/81 HR: 71 RR: 19 O2: 97% RA Temp: 97.9F Past Medical History: HTN Past Surgical History: Cholecystectomy Social History: Denies ETOH, smoking, and drug use. Allergies: Denies HPI: Poor Historian. Patient points to her right side of the head where her headache is. No apparent swelling or contusion or bleeding. Patient has a associated muscle stiffness in her back. Patient has chronic numbness and tingling in her extremities. Past Medical History: Past Surgical History: REVIEW OF SYSTEMS: CONSTITUTIONAL: Denies acute: fever, diaphoresis, chills, generalized weakness. HEAD: Denies acute: photophobia Eyes: Denies acute: Double vision, vision loss, eye pain, eye discharge. EARS: Denies acute: tinnitus, hearing loss, ear discharge, ear pain, THROAT: Denies acute: sore throat, swelling, difficulty swallowing , pain with swallowing, change in voice. NECK: Denies acute: neck swelling, stiff neck. HEART: Denies acute : chest pain, palpitations, LUNGS: Denies acute: SOB, wheezing, cough, hemoptysis ABDOMEN: Denies acute: abdominal pain, Nausea, Vomiting, diarrhea, melena , hematemesis, hematochezia SKIN: Denies acute: rash, redness, lesions, itchiness. EXTREMITIES: Denies acute: calf pain, numbness, tingling, weakness, denies pain in extremity. Denies acute: Low back pain. Neuro: Denies acute: focal neurological deficit, motor or sensory focal neurological deficit, tremors, seizure like activity, confusion, dizziness, change in mental status, loss of bowel or bladder function, cauda equina like symptoms. : Denies acute: dysuria, hematuria, flank pain, increase in urinary frequency. PSYCH: Denies acute: hallucination, suicidal ideation, homicidal ideation. FEMALE: Denies acute: abnormal vaginal bleeding, foul odor, unusual discharge. PHYSICAL EXAM: General: ----no----acute distress, awake and alert. Head: normocephalic, atraumatic. Neck: supple, trachea is midline, no swelling. Cervical spine: Palpation of the posterior midline of the cervical spine reveals no focal swelling, erythema, focal tenderness to palpation. Patient has normal range of motion. Throat: Normal phonation. Eyes:, no erythema, no purulent discharge, no proptosis, no icterus. Heart: regular rate, regular rhythm, no significant murmur appreciated. Lungs: no apparent respiratory distress, Able to speak in full sentences. No wheezing, no rhonchi, no crackles. No stridors Clear to auscultation bilaterally. Abdomen: non tender to palpation, non distended, soft, no guarding, no rebound, + bowel sounds. Obese Neuro: Awake, Alert, oriented to name, self, situation, follows commands GCS=15. Speech is normal. Skin: no petechia, no purpura, no cyanosis, non-pale, not jaundice. Lower extremities: --no - Pitting edema no deformity, no focal swelling, no calf TTP. Makes eye contact. moves all four extremities. Face: no apparent facial droop. Ambulating in the ED with a cane. No nuchal rigidity, Kernig's sign, Brudzinski's sign, no meningeal signs. ED COURSE: DISCLAIMER: This medical document was created using an electronic medical record system with voice recognition software and computerized dictation system. Although this document has been carefully reviewed, there might still be some phonetic and typographical errors. Occasional wrong-word or "sound-alike" substitutions may have occurred due to the inherent limitations of voice recognition software. These areas are purely typographical due to imperfections of the software programs and do not reflect any compromise in the patient's medical care. Please read the chart carefully and recognize, using context, where these substitutions have occurred. Chief Complaint: Headache Time Seen by MD: 17:30 Primary Care Provider: none Reviewed notes: Nurses Notes, Medications, Allergies Allergies: Coded Allergies: NO KNOWN ALLERGIES (Unverified , 05/14/13) Home Meds Active Scripts Nitrofurantoin Monohydrate Mac (Macrobid) 100 Mg Cap, 100 MG PO BID for 7 Days, #14 CAP Prov:ANN VALDERRAMA DO 10/11/24 Cephalexin Monohydrate (Cephalexin) 500 Mg Cap, 500 MG PO Q8HR for 7 Days, #21 CAP Prov:ANN VALDERRAMA DO 06/13/24 Sucralfate (Sucralfate) 1 Gm Tab, 1 GM PO TID for 20 Days, #60 TAB Prov:SAEED MORGAN RESIDENT 03/20/24 Pantoprazole Sodium Sesquihydr (Pantoprazole Sodium) 40 Mg Tab, 40 MG PO BID for 30 Days, #60 TAB Prov:SAEED MORGAN RESIDENT 03/20/24 Reported Medications Enalapril Maleate (Enalapril Maleate) 2.5 Mg Tab, 10 MG PO QPM for 30 Days, MG 03/18/24 Aspirin (Asa) 81 Mg Ch, 81 MG GT 05/14/13 Hydrochlorothiazide (Hydrochlorothiazide) 12.5 Mg Cap, 12.5 MG PO 05/14/13 Discontinued Scripts Famotidine (PEPCID TABLET) 20 Mg Tb, 1 TAB PO BID for 7 Days, #14 TAB Prov:ANALY ESCOBAR 05/06/25 Ciprofloxacin Hcl (Cipro) 500 Mg Tab, 500 MG PO BID for 5 Days, #10 TAB Prov:ANALY ESCOBARP 05/06/25 Information Source: Patient Mode of Arrival: Ambulatory Duration: Since onset Past Medical History PAST MEDICAL HISTORY: HTN Surgical History: BTL, Cholecystectomy [facility] History: Denies all [facility] Hx Family History Family History: Reviewed,noncontributory to illness Social History Smoker: Non-Smoker Alcohol: Denies ETOH Use Drugs: Denies Drug Use Lives In: Home Was a procedure done? Was a procedure done?: No Differential Diagnosis Multiple Trauma: Closed Head Injury Neck Injury: Cervical Muscle Spasm, Cervical Sprain, Cervical Strain X-Ray, Labs, Meds, VS Vital Signs Date Time Temp Pulse Resp B/P (MAP) Pulse Ox O2 Delivery O2 Flow Rate FiO2 05/14/25 22:40 56 18 122/47 (72) 95 05/14/25 22:14 57 18 100/50 (67) 97 05/14/25 22:03 56 17 77/27 (44) 96 78/33 (48) 05/14/25 20:43 191/65 05/14/25 20:34 56 191/65 05/14/25 20:30 56 17 96 Room Air* 0 21 05/14/25 20:30 98.2 56 17 191/65 (107) 96 98.2 05/14/25 19:57 62 18 189/57 (101) 98 05/14/25 19:00 58 18 184/47 (92) 96 05/14/25 18:20 62 18 191/63 (105) 98 05/14/25 18:20 62 18 98 Room Air 05/14/25 16:06 97.9 71 19 170/81 97 97.9 Current Medications Medications (Trade) Dose Ordered Sig/Oli Route Start Time Stop Time Status Last Admin Acetaminophen (Tylenol Tablet) 650 mg ONCE ONCE PO 05/14/25 18:30 05/14/25 18:31 DC 05/14/25 18:48 Acetaminophen/ Hydrocodone Bitart (Sanders 5/325MG Tab) 1 tab ONCE ONCE PO 05/14/25 20:00 05/14/25 20:01 DC 05/14/25 20:43 Hydralazine HCl (Apresoline Injection) 5 mg ONCE ONCE IV 05/14/25 20:45 05/14/25 20:46 DC 05/14/25 20:43 Sodium Chloride 500 ml @ 500 mls/hr Q1H ONCE IV 05/14/25 21:45 05/14/25 22:44 DC 05/14/25 21:40 Sodium Chloride 500 ml @ 500 mls/hr Q1H ONCE IV 05/14/25 22:15 05/14/25 23:14 05/14/25 22:05 Time of 1ST Reevaluation: 17:35 Reevaluation 1ST: Unchanged Time of 2ND Reevaluation: 23:09 (Patient's blood pressure has been in the 190s systolically. She took some of her home medications for blood pressure. She continued to be hypertensive. We ordered hydralazine 5 mg for her. Later I was notified by the nurse that the patient's blood pressure dropped to the 70s. We gave her two fluid boluses and reassessed. Blood pressure has improved however the patient does not feel well. I will admit the patient for observation for further evaluation.) Patient Education/Counseling: Diagnosis, Treatment, Prognosis Family Education/Counseling: No Family Present Departure 1 Departure Time of Disposition: 17:35 Impression: Primary Impression: Closed head injury Additional Impressions: Fall Muscle strain Hypertension Hypotensive episode Disposition: HOME / SELF CARE / HOMELESS Condition: Stable Additional Instructions: Additional instructions: Please read all instructions provided in this packet carefully. You MUST follow-up with your primary care/family doctor in 1 to 2 days. If you are unable to see your primary care/family doctor, please return to our emergency room for re-assessment and re-evaluation in 1 to 2 days. Return to the emergency room here in our facility or to the nearest ER [facility] if your symptoms change or worsen. CONSULTATIONS: you MUST Follow-up for consultation as soon as possible with: -neurology and spine doctor as needed. You MUST call the consultants office yourself to make an appointment. You may need to arrange that through your insurance and/or your primary/family doctor. If you are unable to see the oncology consultant in 1 to 2 days, you must return to our emergency room (or any other ER of your choice) for re-assessment and re- evaluation. Adequate fluid hydration. Although you have been discharged from the Emergency Department, this does not mean that you have a "clean bill of health". No definitive diagnosis for your symptoms has been made today. It is possible that you are in the process of developing a serious illness. This is why you must return to the ED without fail if any new or worsening symptoms develop. Fall precautions. Use [id number] Tylenol as needed for pain control. Monitoring blood pressure at home at least 3 times a day. Below is a copy of your radiological report for follow up: [place] [id number] Ph: [phone] DIAGNOSTIC IMAGING Diagnostic Imaging Report : [id number] Signed PATIENT: KIN HERRERA ACCT: [id number] UNIT: [id number] : 1950 LOC: ER ROOM / BED: / AGE / SEX: 75 / F ADM STATUS: REG ER SERVICE 1616 ORDERING PHYSICIAN: ANN VALDERRAMA DO PROCEDURE(s): CS2 - CERVICAL WITHOUT CONTRAST REASON: fall ORDER NUMBER(s): [id number], ACCESSION NUMBER(s): [id number] EXAM: CT CERVICAL WITHOUT CONTRAST INDICATION: fall EXAM DATE: 05/14/2025 04:34 PM COMPARISON: None TECHNIQUE: Multiple axial CT images of the cervical spine were obtained using bone algorithm. Axial and coronal reformatting was done. Bone and soft tissue windows were reviewed. Radiation Dose Information: CT Dose: CTDI volume is 25 mGy. Dose-length product is 649 mGy*cm FINDINGS: The cervical alignment is intact. No acute cervical spine fracture is identified. The vertebral body heights are intact. No suspicious osseous lesions are identified. Moderate degenerative changes throughout the cervical spine. There is no prevertebral soft tissue swelling. IMPRESSION: 1. No evidence of acute cervical spine fracture or traumatic malalignment. All CT scans at this medical facility are performed using dose modulation techniques as appropriate to a performed exam including the following: Automated exposure control was utilized; adjustment of the MA and/or KV according to patient size; and use of iterative reconstruction technique. ATED BY: DARRELL FOWLER MD DICTATED DATE/TIME: 05/14/251714 SIGNED BY: DARRELL FOWLER MD SIGNED DATE/TIME: 05/14/251714 CC: [place] [id number] Ph: [phone] DIAGNOSTIC IMAGING Diagnostic Imaging Report : [id number] Signed PATIENT: KIN HERRERA ACCT: [id number] UNIT: [id number] : 1950 LOC: ER ROOM / BED: / AGE / SEX: 75 / F ADM STATUS: REG ER SERVICE 15 ORDERING PHYSICIAN: ANN VALDERRAMA DO PROCEDURE(s): HWOCT - HEAD WITHOUT CONTRAST REASON: fall ORDER NUMBER(s): [id number], ACCESSION NUMBER(s): [id number] CT HEAD WITHOUT CONTRAST INDICATION: fall COMPARISON: CT CERVICAL WITHOUT CONTRAST on DOS: 05/14/25, CT HEAD WITHOUT CONTRAST on DOS: 06/13/24 TECHNIQUE: CT of the head without intravenous contrast. RADIATION DOSE: CTDIvol: 51 mGy, DLP: 909 mGy*cm FINDINGS: There is no evidence of acute intracranial hemorrhage, extra-axial collection, mass effect, midline shift, herniation or hydrocephalus. The ventricles, sulci and cisterns are age appropriate. The clark-white differentiation is intact. The visualized paranasal sinuses and mastoid air cells are clear. The surrounding soft tissues and osseous structures are unremarkable. IMPRESSION: 1. No evidence of acute intracranial hemorrhage, mass effect or hydrocephalus. ATED BY: DARRELL FOWLER MD DICTATED DATE/TIME: 05/14/251699 SIGNED BY: DARRELL FOWLER MD SIGNED DATE/TIME: 05/14/251699 CC: Discharged With: Self Critical Care Note Critical Care Time?: No I personally scribed for ANN VALDERRAMA DO ([email or web address]) on 05/14/25 at 17:50. Electronically submitted by Gema Grace ([facility]). ANN VALDERRAMA DO May 14, 2025 17:50
[2025-05-14] MEDS: ACETAMINOPHEN 325 MG TAB PO ONE (18:48)
[2025-05-14 20:30] VITALS: PULSE 56; RESP 17; O2SAT 96
[2025-05-14] MEDS: LABETALOL HCL 20 MG/4 ML VL IV ONE (20:34)
[2025-05-14] MEDS: HYDROcodone-ACET 5/325MG TAB PO ONE (20:43)
[2025-05-14] MEDS: hydrALAZINE HCL 20 MG/ML VL IV ONE (20:43)
[2025-05-14] MEDS: SODIUM CHLORIDE 0.9% 500 ML IV ONE ×2 (21:40→22:05)
[2025-05-14] MEDS ORDERED: ACETAMINOPHEN 325 MG TAB PO PRN (23:45)
[2025-05-14] MEDS ORDERED: ONDANSETRON HCL 4 MG/2 ML VIAL IV PRN (23:45)
[2025-05-14] MEDS ORDERED: HYDROcodone-ACET 5/325MG TAB PO PRN (23:45)
[2025-05-15] MEDS: ENOXAPARIN SOD 40 MG/0.4 ML SYRINGE SC SCH (00:33)
--- NOTE | 2025-05-15 00:39 | DVH ---
CHEST RADIOGRAPH Indication: sob Technique: Single frontal view of the chest was obtained COMPARISON: XY CHEST PORTABLE on DOS: 06/13/24, XY CHEST XRAY 1 VIEW on DOS: 03/19/24 FINDINGS: Lungs and pleural spaces are clear. Cardiac silhouette and kiersten are within normal limits. Bones and s oft tissues demonstrate no significant abnormality. IMPRESSION: No acute disease.
--- NOTE | 2025-05-15 00:41 | DVH ---
CLINICAL INDICATION: pain in shoulder after fall TECHNIQUE: XYXY L SHOULDER 2+ VIEW XRAY Comparison: None FINDINGS/IMPRESSION: : Suspect an age-indeterminate fracture of the distal clavicle, favored remote total difficult to be ce rtain.
[2025-05-15 00:49] LABS: Hematocrit 35.9 % (36.0-46.0); Hemoglobin 12.0 g/dL (12.2-16.2); Mean Corpuscular Hemoglobin 31.3 pg (28.0-32.0); Mean Corpuscular Volume 93.7 fL (80.0-100.0); Nucleated Red Blood Cells % 0.0 %
[2025-05-15 01:12] LABS: Alanine Aminotransferase 21 U/L (7-40); Alkaline Phosphatase 72 U/L (46-116); Anion Gap 9 (5-15); BUN/Creatinine Ratio 14.8 (10.0-20.0); Blood Urea Nitrogen 13 mg/dL (9-23); Carbon Dioxide 23 mmol/L (20-31); Chloride 105 mmol/L (98-107); Potassium 4.2 mmol/L (3.5-5.1); Sodium 137 mmol/L (136-145); Total Protein 6.9 g/dL (5.7-8.2)
[2025-05-15 01:13] LABS: Albumin 4.2 g/dL (3.2-4.8); Bilirubin, Total 0.3 mg/dL (0.2-1.0)
[2025-05-15 01:19] LABS: Calcium 8.3 mg/dL (8.7-10.4); Glucose 117 mg/dL (74-106)
--- NOTE | 2025-05-15 04:07 | DVHHPRES ---
History of Present Illness Resident Creating Document: PATEL OLSEN RESIDENT History of Present Illness This is a 75 year-old female with a past medical history of hypertension and past surgical history of cholecystectomy who presented to the emergency department with chief complaints of occipital headache, neck pain, left shoulder pain and right scapular pain following a mechanical fall today. Patient reports that while using her walker outside around 1:40 p.m. today, she bent down to pick a flower and lost balance. She landed on her back and slammed her head against the concrete floor. Patient denies any dizziness before the fall but admits that she felt dizzy when she tried to get up. She denies any loss of consciousness, nausea, vomiting, chest pain, shortness of breath, confusion after the fall. She also reports that after the fall she went for shower and used her cane, she was not dizzy then but when she tried to get up from bed felt dizziness again. She does not use any blood thinner. Blood pressure on admission was 191/65 mmHg which has come down to 122/47 mmHg with a map of 72, pulse 56, temperature 98.2, SpO2 [address] head came back normal and CT cervix shows no fracture or traumatic malalignment. We are admitting the patient for further evaluation and workup. Past medical history: Hypertension Past surgical history: Cholecystectomy Fmily history: Reviewed and noncontributory to the management of this case Social history: Denies smoking, alcohol use or any illicit drug abuse Home medications: Enalapril 20 mg once daily Allergies: None PCP: Ronna Skaggs Code status: Full code Review of Systems Constitutional: No: Fever, Chills, Sweats, Weakness, Malaise, Other Eyes: No: Pain, Vision change, Conjunctivae inflammation, Eyelid inflammation, Other, Redness ENT: No: Ear pain, Ear discharge, Nose pain, Nose discharge, Nose congestion, Mouth pain, Mouth swelling, Throat pain, Throat swelling, Other Respiratory: No: Cough, Dry, Shortness of breath, SOB with excertion, Wheezing, Hemoptysis, Pleuritic Pain, Sputum, Wheezing, Other Cardiovascular: No: Chest Pain, Palpitations, Orthopnea, Paroxysmal Noc. Dyspnea, Edema, Lt Headedness, Other Gastrointestinal: No: Nausea, Vomiting, Abdominal Pain, Diarrhea, Constipation, Melena, Hematochezia, Other Genitourinary: No Dysuria, No Frequency, No Incontinence, No Hematuria, No Retention, No Other Musculoskeletal: neck pain, shoulder pain, back pain; No: other, arm pain, hand pain, leg pain, foot pain Skin: No: Rash, Lesions, Jaundice, Bruising, Other Neurological: No: Weakness, Numbness, Incoordination, Change in speech, Confusion, Seizures, Other Allergies: Coded Allergies: NO KNOWN ALLERGIES (Unverified , 05/14/13) Medications Current Medications Medications Dose Ordered Sig/Oli Route Start Time Stop Time Status Last Admin Dose Admin Acetaminophen/ Hydrocodone Bitart 1 tab Q4HP PRN PO 05/14/25 23:45 Ondansetron HCl 4 mg Q4HP PRN IV 05/14/25 23:45 Acetaminophen 650 mg Q6HP PRN PO 05/14/25 23:45 Enoxaparin Sodium 40 mg DAILY SC 05/14/25 23:45 Pantoprazole Sodium 40 mg DAILY@0600 PO 05/15/25 06:00 Enalapril Maleate 20 mg DAILY PO 05/15/25 10:00 Exam Vital Signs Vital Signs Date Time Temp Pulse Resp B/P (MAP) Pulse Ox O2 Delivery O2 Flow Rate FiO2 05/15/25 00:39 97.9 54 18 135/46 (75) 97 97.9 05/14/25 20:30 Room Air* 0 21 Exam General Appearance: Alert, Oriented X3, Cooperative, Not in acute distress HEENT: Atraumatic, Mucous membranes moist/pink Respiratory: Clear to auscultation, Normal air movement, No added sounds Cardiovascular: Regular rate, Normal S1, Normal S2, No murmurs Abdominal: Active bowel sounds, Soft, no distention, no tenderness Extremities: No edema, Normal pulses, No tenderness/swelling Skin /MSK: no Significant rash, Tenderness on palpation of right scapular region, left shoulder Neuro: Normal speech, sensorimotor deficits none Psych/Mental Status: Mental status NL, Mood NL Labs/Xrays Labs Test 05/15/25 00:32 Range/Units White Blood Count 10.2 4.4-10.8 10^3/uL Red Blood Count 3.84 L 4.0-5.20 10^6/uL Hemoglobin 12.0 L 12.2-16.2 g/dL Hematocrit 35.9 L 36.0-46.0 % Mean Corpuscular Volume 93.7 80.0-100.0 fL Mean Corpuscular Hemoglobin 31.3 28.0-32.0 pg Mean Corpuscular Hemoglobin Concent 33.5 32.0-36.0 g/dL Red Cell Distribution Width 14.1 11.8-14.3 % Platelet Count 185 140-450 10^3/uL Mean Platelet Volume 8.4 6.9-10.8 fL Neutrophils (%) (Auto) 70.1 37.0-80.0 % Lymphocytes (%) (Auto) 22.4 10.0-50.0 % Monocytes (%) (Auto) 6.1 0.0-12.0 % Eosinophils (%) (Auto) 1.1 0.0-7.0 % Basophils (%) (Auto) 0.3 0.0-2.0 % Neutrophils # (Auto) 7.1 1.6-8.6 10 ^3/uL Lymphocytes # (Auto) 2.3 0.4-5.4 10 ^3/uL Monocytes # (Auto) 0.6 0-1.3 10 ^3/uL Eosinophils # (Auto) 0.1 0-0.8 10 ^3/uL Basophils # (Auto) 0 0-0.2 10 ^3/uL Nucleated Red Blood Cells 0.0 % Sodium Level 137 136-145 mmol/L Potassium Level 4.2 3.5-5.1 mmol/L Chloride Level 105 98-107 mmol/L Carbon Dioxide Level 23 20-31 mmol/L Anion Gap 9 5-15 Blood Urea Nitrogen 13 9-23 mg/dL Creatinine 0.88 0.550-1.02 mg/dL Glomerular Filtration Rate Calc 68 >90 mL/min BUN/Creatinine Ratio 14.8 10.0-20.0 Serum Glucose 117 H 74-106 mg/dL Calcium Level 8.3 L 8.7-10.4 mg/dL Total Bilirubin 0.3 0.2-1.0 mg/dL Aspartate Amino Transferase (AST) 27 13-40 U/L Alanine Aminotransferase (ALT) 21 7-40 U/L Alkaline Phosphatase 72 46-116 U/L Total Protein 6.9 5.7-8.2 g/dL Albumin 4.2 3.2-4.8 g/dL SEPSIS Sepsis Screen Date sepsis recognized/suspect: May 14, 2025 Time Sepsis recognized/suspect: 1606 Recent Procedure: No On Antibiotic Therapy: No Respiratory Rate >20: No Heart Rate >90: No Temp<36 C (96.8 F) or >38.3 C: No SBP <90 or MAP <65 mmHG: No New Acute Mental Status Change: No Is the patient on CPAP, BIPAP,: No Physician Orders Admit (05/14/25 23:45) Code Status (05/14/25 23:45) Hydrocodone-Acet 5/325mg Tab ([place] 5/32 (05/14/25 23:45) Ondansetron Hcl (Zofran) (05/14/25 23:45) Cardiac Diet-2gna,Lofat,Lochol (05/15/25 Breakfast) Condition: Unstable (05/14/25 23:45) Acetaminophen Tablet (Tylenol Tablet) (05/14/25 23:45) Enoxaparin Sodium (Lovenox) (05/14/25 23:45) Stat Ekg For Chest Pain (05/14/25 23:45) Orthostatic Vital Signs (05/14/25 ) Carotid Duplx W Color Dop (05/14/25 23:45) Echo 2d Mode Cardiac Dop (05/14/25 23:45) Vitamin B12 (05/14/25 23:45) Pantoprazole Tablet (Protonix Tablet) (05/15/25 06:00) L Shoulder 2+ View Xray (05/14/25 23:45) Chest Xray 1 View (05/14/25 23:45) Enalapril Tablet (Vasotec Tablet) (05/15/25 10:00) Electrocardigram (05/15/25 00:44) Orthostatic Vital Signs (05/15/25 03:52) Vital Signs Date Time Temp Pulse Resp B/P (MAP) Pulse Ox O2 Delivery O2 Flow Rate FiO2 05/15/25 00:39 97.9 54 18 135/46 (75) 97 97.9 05/14/25 22:40 56 18 122/47 (72) 95 05/14/25 22:14 57 18 100/50 (67) 97 05/14/25 22:03 56 17 77/27 (44) 96 78/33 (48) 05/14/25 20:43 191/65 10/19/25 20:34 56 191/05/14/25 20:30 56 17 96 Room Air* 0 21 05/14/25 20:30 98.2 56 17 (107) 96 98.2 Laboratory Tests Test 05/15/25 00:32 White Blood Count 10.2 10^3/uL (4.4-10.8) Medications Medications Dose Ordered Sig/Oli Route Start Time Stop Time Status Last Admin Dose Admin Acetaminophen 650 mg ONCE ONCE PO 05/14/25 18:30 05/14/25 18:31 DC 05/14/25 18:48 650 MG Acetaminophen/ Hydrocodone Bitart 1 tab ONCE ONCE PO 05/14/25 20:00 05/14/25 20:01 DC 05/14/25 20:43 1 TAB Hydralazine HCl 5 mg ONCE ONCE IV 05/14/25 20:45 05/14/25 20:46 DC 05/14/25 20:43 5 MG Sodium Chloride 500 ml @ 500 mls/hr Q1H ONCE IV 05/14/25 21:45 05/14/25 22:44 DC 05/14/25 21:40 500 MLS/HR Sodium Chloride 500 ml @ 500 mls/hr Q1H ONCE IV 05/14/25 22:15 05/14/25 23:14 DC 05/14/25 22:05 500 MLS/HR Assessment/Plan Assessment/Plan #Hypertensive urgency with sinus bradycardia -EKG -labetalol 5 mg IV once -Hydralazine 5 mg IV once -Enalapril 20 mg daily p.o. scheduled -ondansetron 4 mg q.4 IV PRN #Dizziness due to ?orthostatic hypotension -orthostatic vitals -carotid Doppler -Echo - B12 #Mechanical fall -CT head-normal -CT cervix-no fracture or traumatic malalignment -X-ray of the chest No acute disease -X-ray of the left shoulder: suspect age-indeterminate fracture of the distal clavicle, favored remote total difficult to be certain. -Pain management with acetaminophen 650 mg p.o.; [place] q.4 PRN p.o. GI prophylaxis: 40 mg pantoprazole p.o. daily DVT prophylaxis: patient is ambulating Diet: cardiac diet Goals of care discussed with the patient for more than 27 minutes: Full code status Case discussed with Dr. Coleman, patient Plan discussed with: Patient My Orders Orders - PATEL OLSEN Procedure Category Date Status Time Admit ADMIT 05/14/25 Transmitted 23:45 Code Status CODE 05/14/25 Transmitted 23:45 Hydrocodone-Acet PHA 05/14/25 In Process 5/325mg Tab ([place] 23:45 Ondansetron Hcl PHA 05/14/25 In Process (Zofran) 23:45 Cardiac DIET 05/15/25 Transmitted Diet-2gna,Lofat,Lochol Breakfast Condition: Unstable AIDA 05/14/25 In Process 23:45 Acetaminophen Tablet PHA 05/14/25 In Process (Tylenol Tablet) 23:45 Enoxaparin Sodium PHA 05/14/25 In Process (Lovenox) 23:45 Stat Ekg For Chest AIDA 05/14/25 In Process Pain 23:45 Orthostatic Vital ED NURSING 05/14/25 Transmitted Signs Carotid Duplx W Color US 05/14/25 Logged DOP 23:45 Echo 2d Mode Cardiac US 05/14/25 Logged DOP 23:45 Vitamin B12 LAB 05/14/25 In Process 23:45 Pantoprazole Tablet PHA 05/15/25 In Process (Protonix Tablet) 06:00 L Shoulder 2+ View XY 05/14/25 Resulted Xray 23:45 Chest Xray 1 View XY 05/14/25 Resulted 23:45 Enalapril Tablet PHA 05/15/25 In Process (Vasotec Tablet) 10:00 Orthostatic Vital ORDERS 05/15/25 Transmitted Signs 03:52 Date of Service: May 15, 2025 Billing Provider: ALEX COLEMAN MD, SREYA RESIDENT May 15, 2025 04:06
[2025-05-15] MEDS: PANTOPRAZOLE 40 MG TAB PO SCH (06:13)
--- NOTE | 2025-05-15 08:39 | DVH ---
CLINICAL HISTORY: dizziness and fall injury. TECHNIQUE: Duplex carotid Doppler ultrasound was performed. Grayscale, color-flow, and spectral wavef orm analysis was performed. COMPARISON: None FINDINGS: There is minimal plaque seen on clark scale imaging in the carotid bifurcations and proximal ICAs bila terally. There is no significant elevation of the peak systolic velocity. There is no significant spectral broadening. Color doppler examination demonstrates no evidence for significant turbulent fl ow. Findings correspond to the less than 50% stenosis category. Antegrade flow is noted in both joni tebral arteries. EXAMINATION DATA: RIGHT PSV (cm/s) EDV (cm/s) ICA 98 22 CCA 79 ECA 74 ICA/CCA Ratio: 1.2 Vertebral Flow: antegrade LEFT PSV (cm/s) EDV (cm/s) ICA 111 27 CCA 79 ECA 82 ICA/CCA Ratio: 1.4 Vertebral Flow: antegrade IMPRESSION: Findings are consistent with the less than 50% carotid stenosis category bilaterally.
[2025-05-15 10:00] VITALS: BP 141/40; PULSE 61; RESP 14; TEMP 97.9; O2SAT 97
[2025-05-15] MEDS: ENALAPRIL MALEATE 10 MG TAB PO SCH (10:48)
[2025-05-15] MEDS ORDERED: TRAM-626 PO (11:41)
--- NOTE | 2025-05-15 12:05 | DVHDSRES ---
Discharge Summary Date of Admission Resident Creating Document: JAMIN TRINIDAD RESIDENT May 14, 2025 at 23:45 Date of Discharge: May 15, 2025 Admitting Diagnosis #Hypertensive urgency with sinus bradycardia #Mechanical Fall Wounds: No wounds present upon admission Labs/Diagnostic Data: Laboratory Results Test 05/15/25 00:32 White Blood Count 10.2 10^3/uL (4.4-10.8) Red Blood Count 3.84 10^6/uL (4.0-5.20) Hemoglobin 12.0 g/dL (12.2-16.2) Hematocrit 35.9 % (36.0-46.0) Mean Corpuscular Volume 93.7 fL (80.0-100.0) Mean Corpuscular Hemoglobin 31.3 pg (28.0-32.0) Mean Corpuscular Hemoglobin Concent 33.5 g/dL (32.0-36.0) Red Cell Distribution Width 14.1 % (11.8-14.3) Platelet Count 185 10^3/uL (140-450) Mean Platelet Volume 8.4 fL (6.9-10.8) Neutrophils (%) (Auto) 70.1 % (37.0-80.0) Lymphocytes (%) (Auto) 22.4 % (10.0-50.0) Monocytes (%) (Auto) 6.1 % (0.0-12.0) Eosinophils (%) (Auto) 1.1 % (0.0-7.0) Basophils (%) (Auto) 0.3 % (0.0-2.0) Neutrophils # (Auto) 7.1 10 ^3/uL (1.6-8.6) Lymphocytes # (Auto) 2.3 10 ^3/uL (0.4-5.4) Monocytes # (Auto) 0.6 10 ^3/uL (0-1.3) Eosinophils # (Auto) 0.1 10 ^3/uL (0-0.8) Basophils # (Auto) 0 10 ^3/uL (0-0.2) Nucleated Red Blood Cells 0.0 % Sodium Level 137 mmol/L (136-145) Potassium Level 4.2 mmol/L (3.5-5.1) Chloride Level 105 mmol/L (98-107) Carbon Dioxide Level 23 mmol/L (20-31) Anion Gap 9 (5-15) Blood Urea Nitrogen 13 mg/dL (9-23) Creatinine 0.88 mg/dL (0.550-1.02) Glomerular Filtration Rate Calc 68 mL/min (>90) BUN/Creatinine Ratio 14.8 (10.0-20.0) Serum Glucose 117 mg/dL (74-106) Calcium Level 8.3 mg/dL (8.7-10.4) Total Bilirubin 0.3 mg/dL (0.2-1.0) Aspartate Amino Transferase (AST) 27 U/L (13-40) Alanine Aminotransferase (ALT) 21 U/L (7-40) Alkaline Phosphatase 72 U/L (46-116) Total Protein 6.9 g/dL (5.7-8.2) Albumin 4.2 g/dL (3.2-4.8) Vitamin B12 Level 2642 pg/mL (211-911) Other Laboratory Tests 05/15/25 00:32 Brief Hx & Hospital Course: Sudheer Villareal Is a 75 year-old female, with a past medical history of hypertension and past surgical history of cholecystectomy. The patient presented to the ED with chief complaints of hours after suffering a mechanical fall at ground level, falling backwards hurting the back of her head, presenting neck and left shoulder pain. The patient reports that she was using her walker she bend forward and lost balance. Patient denies any dizziness before the fall but admits that she felt dizzy when she tried to get up. She denies any loss of consciousness, nausea, vomiting, chest pain, shortness of breath, or other trauma after the fall. The patient reports that she is not on blood thinners. In the ED, his blood pressure on admission BP: 191/65 mmHg which has come down to 122/47 mmHg with a map of 72, pulse 56, temperature 98.2, SpO2 [address] head and neck showed no fracture or traumatic misalignment. During her hospital admission the BP was monitorized, and orthostatic VS were ordered, they were stable. Chest xray showed: aged indeterminated left clavicular fracture. Her pain was managed with acetaminophen and [place] 5/325mg, with improvement of the pain. Past medical history: Hypertension Past surgical history: Cholecystectomy Family history: Reviewed and noncontributory to the management of this case Social history: Denies smoking, alcohol use or any illicit drug abuse.Home medications: Enalapril 20 mg once daily. Allergies: None Today, the patient was evaluated bedside, VS are stable, labs reviewed and unremarkable. The patient is feeling better. I spoke with the patients daughter about continuing care with orthopedics as an out patient. The patient and daughter agreed to understanding. Dr. Coleman spoke with orthopedics, they will see the patient on Thursday05/17/25 9:00am. The patient is being discharged today. ROS: Constitutional: No: Fever, Chills, Sweats, Weakness, Malaise, Other Eyes: No: Pain, Vision change, Conjunctivae inflammation, Eyelid inflammation, Other, Redness ENT: No: Ear pain, Ear discharge, Nose pain, Nose discharge, Nose congestion, Mouth pain, Mouth swelling, Throat pain, Throat swelling, Other Respiratory: No: Cough, Dry, Shortness of breath, SOB with excertion, Wheezing, Hemoptysis, Pleuritic Pain, Sputum, Wheezing, Other Cardiovascular: No: Chest Pain, Palpitations, Orthopnea, Paroxysmal Noc. Dyspnea, Edema, Lt Headedness, Other Gastrointestinal: No: Nausea, Vomiting, Abdominal Pain, Diarrhea, Constipation, Melena, Hematochezia, Other Genitourinary: No Dysuria, No Frequency, No Incontinence, No Hematuria, No Retention, No Other Musculoskeletal: neck pain, shoulder pain, back pain; No: other, arm pain, hand pain, leg pain, foot pain Skin: No: Rash, Lesions, Jaundice, Bruising, Other Neurological: No: Weakness, Numbness, Incoordination, Change in speech, Confusion, Seizures, Other Allergies: Not know allergies. Exam: General Appearance: Alert, Oriented X3, Cooperative, Not in acute distress HEENT: Atraumatic, Mucous membranes moist/pink Respiratory: Clear to auscultation, Normal air movement, No added sounds Cardiovascular: Regular rate, Normal S1, Normal S2, No murmurs Abdominal: Active bowel sounds, Soft, no distention, no tenderness Extremities: No edema, Normal pulses, No tenderness/swelling Skin /MSK: no Significant rash, Tenderness on palpation of right scapular region, left shoulder Neuro: Normal speech, sensorimotor deficits none Psych/Mental Status: Mental status NL, Mood NL Operations or Procedures EXAM: CT CERVICAL WITHOUT CONTRAST INDICATION: fall EXAM DATE: 05/14/2025 04:34 PM COMPARISON: None TECHNIQUE: Multiple axial CT images of the cervical spine were obtained using bone algorithm. Axial and coronal reformatting was done. Bone and soft tissue windows were reviewed. Radiation Dose Information: CT Dose: CTDI volume is 25 mGy. Dose-length product is 649 mGy*cm FINDINGS: The cervical alignment is intact. No acute cervical spine fracture is identified. The vertebral body heights are intact. No suspicious osseous lesions are identified. Moderate degenerative changes throughout the cervical spine. There is no prevertebral soft tissue swelling. IMPRESSION: 1. No evidence of acute cervical spine fracture or traumatic malalignment. All CT scans at this medical facility are performed using dose modulation techniques as appropriate to a performed exam including the following: Automated exposure control was utilized; adjustment of the MA and/or KV according to patient size; and use of iterative reconstruction technique. HEAD WITHOUT CONTRAST INDICATION: fall COMPARISON: CT CERVICAL WITHOUT CONTRAST on DOS: 05/14/25, CT HEAD WITHOUT CONTRAST on DOS: 06/13/24 TECHNIQUE: CT of the head without intravenous contrast. RADIATION DOSE: CTDIvol: 51 mGy, DLP: 909 mGy*cm FINDINGS: There is no evidence of acute intracranial hemorrhage, extra-axial collection, mass effect, midline shift, herniation or hydrocephalus. The ventricles, sulci and cisterns are age appropriate. The clark-white differentiation is intact. The visualized paranasal sinuses and mastoid air cells are clear. The surrounding soft tissues and osseous structures are unremarkable. IMPRESSION: 1. No evidence of acute intracranial hemorrhage, mass effect or hydrocephalus. T RADIOGRAPH Indication: sob Technique: Single frontal view of the chest was obtained COMPARISON: XY CHEST PORTABLE on DOS: 06/13/24, XY CHEST XRAY 1 VIEW on DOS: 03/19/24 FINDINGS: Lungs and pleural spaces are clear. Cardiac silhouette and kiersten are within normal limits. Bones and soft tissues demonstrate no significant abnormality. IMPRESSION: No acute disease. ICAL INDICATION: pain in shoulder after fall TECHNIQUE: XYXY L SHOULDER 2+ VIEW XRAY Comparison: None FINDINGS/IMPRESSION: : Suspect an age-indeterminate fracture of the distal clavicle, favored remote total difficult to be certain. ICAL HISTORY: dizziness and fall injury. TECHNIQUE: Duplex carotid Doppler ultrasound was performed. Grayscale, color- flow, and spectral waveform analysis was performed. COMPARISON: None FINDINGS: There is minimal plaque seen on clark scale imaging in the carotid bifurcations and proximal ICAs bilaterally. There is no significant elevation of the peak systolic velocity. There is no significant spectral broadening. Color doppler examination demonstrates no evidence for significant turbulent flow. Findings correspond to the less than 50% stenosis category. Antegrade flow is noted in both vertebral arteries. EXAMINATION DATA: RIGHT PSV (cm/s) EDV (cm/s) ICA 98 22 CCA 79 ECA 74 ICA/CCA Ratio: 1.2 Vertebral Flow: antegrade LEFT PSV (cm/s) EDV (cm/s) ICA 111 27 CCA 79 ECA 82 ICA/CCA Ratio: 1.4 Vertebral Flow: antegrade IMPRESSION: Findings are consistent with the less than 50% carotid stenosis category bilaterally. RING PHYSICIAN: PATEL OLSEN RESIDENT PROCEDURE(s): ECIDC - ECHO 2D MODE CARDIAC DOP REASON: chest pain ORDER NUMBER(s): [id number], ACCESSION NUMBER(s): [id number] APPROVED REPORT EXAM: Two-dimensional and M-mode echocardiogram with Doppler and color Doppler. INDICATION Chest Pain RISK FACTORS Height: 5'3", Weight: 166 DIMENSIONS LVDd 4.0 (3.8-5.7cm) LA (2D) 3.4 (1.9-4.0cm) Aortic Root 3.0 (2.0- 3.7cm) LVDs 2.8 (2.5-4.0cm) LA (MM) (1.9-4.0cm) Aortic Cusp Exc 1.5 (1.5- 2.0cm) EF (%) 60.0 (55-70%) Rt. Atrium 3.4 (1.9-4.0cm) Asc. Aorta cm IVSd 1.2 (0.7-1.1cm) RV (D) 3.7 (1.8-2.4cm) PWd 1.2 (0.7-1.1cm) Mitral Valve Mitral Mitral Stenosis E wave 0.89m/s MV Mean GR. mmHg A wave 0.89m/s MV Peak GR. mmHg E/A ratio 1.0 2D MVA cm2 DECEL Time 246ms PRESS 1/2 Time ms Aortic Valve Aortic Valve Aortic Stenosis V1 0.94m/s AO Mean GR. 5mmHg V2 1.61m/s AO Peak GR. 10mmHg LVOT Diameter 1.8 (1.8-2.4cm) Doppler SALINAS 1.48cm2 Pulmonic Valve V2 0.90m/s Tricuspid Valve TR Velocity 2.45m/s RVSP 32mmHg Other Information Technically limited study due to body habitus. Conclusion lvef 60% normal RV function left atrium enlarged mild no severe valve abnormalities noted SIGNED BY: LUDMILA RODAS MD SIGNED DATE/TIME: 05/15/25 3975 Condition at Discharge: Stable Final Diagnosis/Problems List Closed left clavicular fracture Mechanical fall Hypertension emergency Discharge Disposition: Home SNF Discharge Will this Physician continue t: No Discharge Instruct/Medications Diet: Cardiac 2g Na,low cholest Activity: No Restrictions, As Tolerated Follow Up/Referral: F/U with Orthopedic clinic out patient tomorrow. F/U with PCP in 1 week Medications: Tramadol 50mg po Q8HR for pain Continue hypertensive medications: Lisinopril 20 mg po qd and Hydrochlorothiazide 12.5mg po 1d Scheduled Enalapril Maleate (Enalapril Maleate), 10 MG PO QPM, (Reported) Pantoprazole Sodium Sesquihydr (Pantoprazole Sodium), 40 MG PO BID Sucralfate (Sucralfate), 1 GM PO TID Scheduled PRN Tramadol HCl (Tramadol HCl), 50 MG PO Q8HP PRN Miscellaneous Medications Aspirin (Asa), 81 MG GT, (Reported) Hydrochlorothiazide (Hydrochlorothiazide), 12.5 MG PO, (Reported) Discontinued Medications Cephalexin Monohydrate (Cephalexin), 500 MG PO Q8HR Ciprofloxacin Hcl (Cipro), 500 MG PO BID Discontinued Reason: Auto Discontinued Famotidine (Pepcid Tablet), 1 TAB PO BID Discontinued Reason: Auto Discontinued Nitrofurantoin Monohydrate Mac (Macrobid), 100 MG PO BID Discharge Statement: "Patient was advised to return to the ER or call 911 if any headaches, dizziness, shortness of breath, chest pain, abdominal pain, bleeding, fevers, or worsening of medical condition. Patient was counseled about treatment plan, medications, possible side effects, patientverbalized understanding. All questions were answered to the best of my ability. This discharge took greater then 30 minutes in planning, reviewing documentation, counseling the patient, and discussing with other team members." Discharge Care Plan Problem Pain Goals Pain controlled Instructions Take Rx medications, Notify MD of any issues, Keep list of meds w/ you, Do not drink ETOH/smoke, Call 911 in an emergency, F/U w/ PCP ASSESSMENT ASSESSMENT Assessment #Hypertensive urgency with sinus bradycardia Resolved: BP: 135/76mmhg, HR:65 Continue with Enalapril 10mg po qd Contine with Hydrochlorothiazide 12.5mg po qd #Mechanical fall #Closed left clavicular fracture -CT head-normal -CT cervix-no fracture or traumatic misalignment -X-ray of the chest No acute disease -X-ray of the left shoulder: suspect age-indeterminate fracture of the distal clavicle, favored remote total difficult to be certain. -Tramadol 50mg po Q8HR for pain -Left arm sling. -F/U with orthopedics -F/U with PCP in one week. Goals of care discussed with the patient > 35 min. Discussed plan of care with Dr. Coleman Code status: Full code PCP: Dr. Crocker Plan discussed with: Patient and daughter, the patient agrees with the discharge plan. Date of Service: May 15, 2025 Billing Provider: ALEX COLEMAN MD Common Visit Codes: 40342-YBQ/OBS DISCH DAY >30min JAMIN TRINIDAD RESIDENT May 15, 2025 12:05 ALEX COLEMAN MD May 15, 2025 18:25
--- NOTE | 2025-05-15 13:33 | DVHSR ---
APPROVED REPORT EXAM: Two-dimensional and M-mode echocardiogram with Doppler and color Doppler. INDICATION Chest Pain RISK FACTORS Height: 5'3", Weight: 166 DIMENSIONS LVDd4.0 (3.8-5.7cm)LA (2D)3.4 (1.9-4.0cm)Aortic Root3.0 (2.0-3.7cm) LVDs2.8 (2.5-4.0cm)LA (MM) (1.9-4.0cm)Aortic Cusp Exc1.5 (1.5-2.0cm) EF (%) 60.0 (55-70%)Rt. Atrium3.4 (1.9-4.0cm)Asc. Aorta cm IVSd1.2 (0.7-1.1cm)RV (D)3.7 (1.8-2.4cm) PWd1.2 (0.7-1.1cm) Mitral Valve MitralMitral Stenosis E wave0.89m/sMV Mean GR.mmHg A wave0.89m/sMV Peak GR.mmHg E/A ratio1.02D MVAcm2 DECEL [id number] 1/2 Tim[place] Aortic Valve Aortic ValveAortic Stenosis V10.94m/Wilfredo Mean GR.5mmHg V21.61m/Wilfredo Peak GR.10mmHg LVOT Diameter1.8 (1.8-2.4cm)Doppler AVA1.48cm2 Pulmonic Valve V20.90m/s Tricuspid Valve TR Velocity2.45m/s [id number] Other Information Technically limited study due to body habitus. Conclusion lvef 60% normal RV function left atrium enlarged mild no severe valve abnormalities noted
== END 2025-05-15 15:20 | disposition home or self-care (01) | DRG 342 ==
LOC: ER 16:04 → OVERFLOW 23:45
PROVIDERS: ADMIT Internal Medicine Pulmonary Disease; ATTEND Internal Medicine
DX: S42.032A Displaced fracture of lateral end of left clavicle, initial encounter for closed fracture (principal); I16.1 Hypertensive emergency; S09.90XA Unspecified injury of head, initial encounter; I10 Essential (primary) hypertension; W18.39XA Other fall on same level, initial encounter; Y93.89 Activity, other specified; Y92.89 Other specified places as the place of occurrence of the external cause; Y99.8 Other external cause status; Z90.49 Acquired absence of other specified parts of digestive tract; Z98.51 Tubal ligation status
CPT/HCPCS: 36415; 70450; 71045; 72125; 73030; 80053; 82607; 85025; 93306; 93886; 96361; 96374; G0378